=== PATIENT | female | born 1985 | race Caucasian/White ===

== ENCOUNTER 2023-03-19 21:23 | Outpatient (REF) | payer OTHER, SELFPAY ==
[2023-03-23 15:10] LABS: Age Gdln ACOG Testing Note (.); HPV Aptima Negative (Negative); IGP, Aptima HPV, rfx 16/18,45 Note (.)
== END 2023-03-19 21:24 | disposition home or self-care (01) ==
LOC: LAB 21:23
PROVIDERS: PCP Family Medicine; Visit Provider Physician Assistant
DX: Z01.419 Encounter for gynecological examination (general) (routine) without abnormal findings (principal)
CPT/HCPCS: 87624; G0145

== ENCOUNTER 2023-07-11 09:36 | Outpatient (OUT) | payer BC, SELFPAY ==
--- NOTE | 2023-07-11 09:40 | MR_ITS ---
[address] [address] Patient Name: SERJIO LEOS MRN: [id number] date: 1985 Sex: F Assigned Patient Location: MRI Current Patient Location: MRI Accession/Order Number: [id number] Exam Date: 07/11/2023 09:50 Report Date: 07/11/2023 12:58 At the request of: GUILLERMO JEROME Procedure: MR lumbar spine wo con EXAM: MR lumbar spine wo con CLINICAL INDICATION: lumbago with sciatica, left side M54.42 COMPARISON: Lumbar spine radiographs 07/11/2023. TECHNIQUE/PROTOCOL: Noncontrast lumbar spine MR protocol (Sagittal T1, T2, STIR and axial T1, T2 sequences). FINDINGS: Segmentation: Normal. Conus: Terminates at L1. Spinal Cord and Cauda Equina: Normal. Pedicles: Congenital shortened. Alignment: Normal. Marrow Signal: Normal. Vertebral Body Heights: Maintained. Sacroiliac Joints: Grossly normal given only partially visualized. Paraspinal Soft Tissues: Normal. Retroperitoneal Soft Tissues: No acute abnormalities. Spondylotic Changes: Minimal multilevel spondylotic changes include varying degrees of intervertebral disc desiccation, osteophytic ridging, and facet/ligamentum flavum hypertrophy. T12-L1: No disc bulge or herniation. No high-grade spinal canal or foraminal narrowing. L1-L2: No disc bulge or herniation. No high-grade spinal canal or foraminal narrowing. L2-L3: No disc bulge or herniation. No high-grade spinal canal or foraminal narrowing. L3-L4: No disc bulge or herniation. No high-grade spinal canal or foraminal narrowing. L4-L5: Slight left foraminal disc protrusion results in mild left foraminal narrowing. No high-grade spinal canal or right foraminal narrowing. Minimal bilateral facet/ligamentum flavum hypertrophy. L5-S1: Left lateral recess/foraminal disc protrusion with extruded disc material projecting posteriorly and effacing the majority of the left lateral recess. Disc material compresses the transiting left S1 nerve root. There is resultant moderate spinal canal narrowing. Mild bilateral foraminal narrowing. Mild bilateral facet hypertrophy. MR/MR lumbar spine wo con IMPRESSION: 1. Left lateral recess/foraminal disc protrusion at L5-S1 with extruded disc material projecting posteriorly and effacing the majority of the left lateral recess. Disc material compresses the transiting left S1 nerve root. Moderate resultant spinal canal narrowing. 2. No high-grade foraminal narrowing at any lumbar level. Electronically authenticated by: DYLON HOLLINS Date: 07/11/2023 12:58
--- OUTSIDE RECORDS SUMMARY | 2023-07-11 09:42 | XMS_ITS | CCD ---
Author Organization [facility] Care Team Providers Care Remote Sensing Analyst Name Role Phone DR GUILLERMO PATEL Admitting Unavailable DR GUILLERMO PATEL Primary Care Unavailable AMANDA, DR LI Consulting Unavailable DR GUILLERMO PATEL Attending Unavailable MEIR, DR MARIO Admitting Unavailable MEIR, DR MARIO Consulting Unavailable MEIR, DR MARIO Attending Unavailable AMANDA, DR LI Admitting Unavailable AMANDA, DR LI Consulting Unavailable AMANDA, DR LI Attending Unavailable Guillermo Patel Primary Care Physician Martin RAY Attending Unavailable KEISHA GROVES Referring Unavailable KEISHA GROVES Attending Unavailable Allergies Allergy Classification Reported Allergen(s) Allergy Type Date of Onset Reaction(s) Facility (1 source) No Known Medication Allergies; Translations: [No Known Medication Allergies] Propensity to adverse reactions (disorder) [facility] Repository Medications Current Medications Medication Drug Class(es) Dates Sig (Normalized) Sig (Original) citalopram 40 mg oral tablet (1 source) Serotonin Reuptake Inhibitor Start: 05-05-2022 take 1 tablet by mouth once daily CeleXA 40 mg Tab 40 mg = 1 tab(s), Oral, Daily, Refills(s) 0 Start Date: 05/05/22 Status: Ordered hydrOXYzine pamoate 25 mg oral capsule (1 source) Antihistamine Start: 04-11-2013 take 1 capsule by mouth four times daily as needed for anxiety Vistaril 25 mg Cap 25 mg = 1 cap(s), Oral, QID, PRN PRN as needed for anxiety Start Date: 04/11/13 Status: Ordered Problems Active Problems Problem Classification Problem Date Documented Date Episodic/Chronic Acute bronchitis (1 source) Acute bronchitis, unspecified; Translations: [ACUTE BRONCHITIS UNSPECIFIED] Onset: 04-12-2021 Episodic Anxiety disorders (1 source) Anxiety 04-11-2013 Chronic Cancer of uterus (1 source) Malignant neoplasm of uterus 05-05-2022 Chronic Immunizations and screening for infectious disease (1 source) Encounter for screening for human papillomavirus (HPV); Translations: [ENC SCREENING HUMAN PAPILLOMAVIRUS] Onset: 02-12-2021 Episodic Other and unspecified benign neoplasm (1 source) Lipoma of head and neck; Translations: [Benign lipomatous neoplasm of skin and subcutaneous tissue of head, face and neck] Onset: 05-10-2022 Episodic Other and unspecified benign neoplasm (1 source) Lipoma of forehead 05-10-2022 Episodic Other nutritional; endocrine; and metabolic disorders (1 source) Body mass index 40+ - severely obese 05-10-2022 Chronic Other screening for suspected conditions (not mental disorders or infectious disease) (4 sources) Encounter for screening for malignant neoplasm of cervix; Translations: [ENC SCREENING MALIG NEOPLASM CERV] Onset: 02-09-2021 Episodic Residual codes; unclassified (1 source) Insomnia 05-05-2022 Episodic Unclassified (3 sources) CONTACT W/AND (SUSP) EXPOS COVID-19; Translations: [CONTACT W/AND (SUSP) EXPOS COVID-19] Onset: 04-12-2021 Past or Other Problems Problem Classification Problem Date Documented Da te Episodic/Chronic Unclassified (1 source) CONTACT W/AND (SUSP) EXPOS COVID-19; Translations: [CONTACT W/AND (SUSP) EXPOS COVID-19] Onset: 04-05-2021 Results Test Name Value Interpretation Reference Range Facil ity BI MAMMOGRAM SCREENING TOMOS YNTHESIS BILATERALon 06-22-2023 BI MAMMOGRAM SCREENING TOMOSYNTHESIS BILATERAL This is a summary report. The complete report is available in the patient's medical record. If you cannot access the medical record, please contact the sending organization for a detailed fax or copy. EXAMINATION: BI MAMMOGRAM SCREENING TOMOSYNTHESIS BILATERAL CLINICAL HISTORY:[place] cancer screening COMPARISON: There are no previous mammograms available for comparison. RESULT: Digital mammography and 3D tomosynthesis of bilateral breasts was performed. Density: Scattered fibroglandular density [2] There is no suspicious mass, asymmetry, architectural distortion, or calcification. IMPRESSION: BIRADS 1 - Negative Follow-up: Routine Screening Mamm Board Certified Radiologists. Accredited by the ACR and FDA. MAMMOGRAPHY IS VERY IMPORTANT TO YOUR HEALTH. THE [place] GUIDELINES RECOMMEND THAT WOMEN 40 YEARS OF AGE AND OLDER SHOULD HAVE A MAMMOGRAM EVERY YEAR. A REMINDER LETTER WILL BE SENT AT THE APPROPRIATE TIME. THIS FACILITY UTILIZES A REMINDER SYSTEM TO ENSURE ALL PATIENTS RECEIVE REMINDER NOTIFICATIONS AT THE APPROPRIATE TIME BASED ON THE RECOMMENDATIONS OF THIS EXAM. THIS INCLUDES REMINDERS FOR ROUTINE SCREENING MAMMOGRAMS, DIAGNOSTIC MAMMOGRAMS IN WHICH THE PATIENT IS ASKED TO RETURN FOR ADDITIONAL VIEWS, OR OTHER BREAST IMAGING INTERVENTIONS WHEN APPROPRIATE. THE PATIENT WILL BE PLACED IN THE APPROPRIATE REMINDER SYSTEM INCLUDING A REMINDER AT THE APPROPRIATE TIME FOR ANY PENDING ADDITIONAL VIEWS. TRANSCRIBED BY: ELECTRONICALLY SIGNED BY: Alonzo Tello MD Normal Not Available Ambulatory Visit Summaryon 0 05-17-2022 Ambulatory Visit Summary SERJIO LEOS :1985 Visit Date:05/10/2022 Ambulatory Visit Instructions Your Diagnosis Lipoma of forehead Your Care Team Attending Physician - CORY THACKER, Martin Canchola Primary Care Physician - Amanda THACKER, Guillermo This Is Your Medications List Contact prescribing physician if questions or concerns citalopram (CeleXA 40 mg Tab) hydrOXYzine (Vistaril 25 mg Cap) Procedures Performed section, section, Cystectomy, Extraction of wisdom tooth. Medications What How Much When Instructions Unchanged citalopram (CeleXA 40 mg Tab) 1 Tablets By Mouth Every day Contact prescribing physician if questions or concerns Unchanged hydrOXYzine (Vistaril 25 mg Cap) 1 Capsules By Mouth 4 times a day as needed for as needed for anxiety Contact prescribing physician if questions or concerns Medications and Immunizations Administered Not Given influenza virus vaccine, inactivated, Patient Refuses Allergies No Known Allergies No Known Medication Allergies Problems Ongoing - Any problem that you are currently receiving treatment for. Anxiety BMI 40.0-44.9, adult Insomnia Lipoma of forehead Malignant neoplasm of uterus Normal [facility] Facesheeton 05-11-2022 Facesheet [phone] [id number] 0CD:127 Normal [facility] Physician Referralon 023 Physician Referral [phone] [id number] 0CD:127 Normal [facility] Covid-19 PCR (CVDTB)on 03-17 SARS-CoV-2 (COVID-19) RNA TANIKA+probe Ql (Unsp spec) Not detected Normal NOT DETECTED [facility] Comment on above: Result Comment: This test is not yet approved or cleared by the [place] FDA. When there are no FDA-approved or cleared tests available, and other criteria are met, FDA can make tests available under an emergency access mechanism called an Emergency Use Authorization (EUA). The EUA for this test is supported by the [place] of Health and Human Service's (HHS's) declaration that circumstances exist to justify the emergency use of in vitro diagnostics for the detection and/or diagnosis of the virus that causes COVID-19. This EUA will remain in effect (meaning this test can be used) for the duration of the COVID-19 declaration justifying emergency of IVDs, unless it is terminated or revoked by FDA (after which the test may no longer be used). When diagnostic testing is negative, the possibility of a false negative should be considered in the context of a patient's recent exposures and the presence of clinical signs and symptoms consistent with SARS-CoV-2. Performed By: #### C VDTBH #### [facility] [address] [place] [address] Dr. Fany Griggs INFLUENZA A AND B AGon 04-05 [facility] SEE BELOW Normal [facility] Comment on above: Result Comment: Nega tive for Flu A protein angiten. Infection due to Flu A cannot be ruled out. Flu A angiten in the sample may be below the detection limit of the test. Performed By: #### I NFLUAB #### [facility] [address] [place] [address] Dr. Fany Griggs INFLUBNEG SEE BELOW Normal [facility] Comment on above: Result Comment: Nega tive for Flu B protein antigen. Infection due to Flu B cannot be ruled out. Flu B antigen in the sample may be below the detection limit of the test. Performed By: #### I NFLUAB #### [facility] [address] [place] [address] Dr. Fany Griggs INFLUENZA A AG Negative Normal NEGATIVE SEE COMMENT [facility] Comment on above: Performed By: #### I NFLUAB #### [facility] [address] [place] [address] Dr. Fany Griggs INFLUENZA B AG Negative Normal NEGATIVE SEE COMMENT [facility] Comment on above: Performed By: #### I NFLUAB #### [facility] [address] [place] [address] Dr. Fany Griggs INTERNAL CONTROLS Within Normal Limits Normal Wi thin Normal Limits [facility] Comment on above: Performed By: #### I NFLUAB #### [facility] [address] [place] [address] Dr. Fany Griggs PAP ACOG PANEL 2: 30 to 65on 02-14-2021 . . Normal [facility] Comment on above: Result Comment: Perf ormed at: WB Performed By: #### [id number] #### [facility] [address] [place] [address] Dr. Fany Griggs DIAGNOSIS: Comment Normal [facility] Comment on above: Result Comment: NEGA TIVE FOR INTRAEPITHELIAL LESION OR MALIGNANCY. Performed at: WB Performed By: #### 4 [id number] #### [facility] [address] [place] [address] Dr. Fany Griggs HPV Aptima Negative Normal Negative [facility] Comment on above: Result Comment: This nucleic acid amplification test detects fourteen high-risk HPV types (16,18,31,33,35,39,45,51,52,56,58,59,66,68) without differentiation. Performed at: =G Performed By: #### [id number] #### [facility] [address] [place] [address] Dr. Fany Griggs Methodology: Comment Normal [facility] Comment on above: Result Comment: This liquid based ThinPrep(R) pap test was screened with the use of an image guided system. Performed at: WB Performed By: #### 4 [id number] #### [facility] [address] [place] [address] Dr. Fany Griggs Note: Comment Normal [facility] Comment on above: Result Comment: The Pap smear is a screening test designed to aid in the detection of premalignant and malignant conditions of the uterine cervix. It is not a diagnostic procedure and should not be used as the sole means of detecting cervical cancer. Both false-positive and false-negative reports do occur. . Performed at: WB Performed By: #### [id number] #### [facility] [address] [place] [address] Dr. Fany Griggs Performed by: Comment Normal [facility] Comment on above: Result Comment: Silvia Tafoya, Clinical Medical Transcriptionist (ASCP) Performed at: WB Performed By: #### 4 [id number] #### [facility] [address] [address] [address] Fany Griggs Specimen adequacy: Comment Normal [facility] Comment on above: Result Comment: Sati sfactory for evaluation. Endocervical and/or squamous metaplastic cells (endocervical component) are present. Performed at: WB Performed By: #### 4 [id number] #### [facility] [address] [place] [address] Dr. Fany Griggs Age Gdln ACOG Testing 30-65 Normal [facility] Comment on above: Performed By: #### [id number] #### [facility] [address] [place] [address] Dr. Fany Griggs Covid-19 PCR ([place])on 12-16 SARS-CoV-2 (COVID-19) RNA TANIKA+probe Ql (Unsp spec) Not detected Normal NOT DETECTED [facility] Comment on above: Result Comment: This test is not yet approved or cleared by the [place] FDA. When there are no FDA-approved or cleared tests available, and other criteria are met, FDA can make tests available under an emergency access mechanism called an Emergency Use Authorization (EUA). The EUA for this test is supported by the [place] of Health and Human Service's (HHS's) declaration that circumstances exist to justify the emergency use of in vitro diagnostics for the detection and/or diagnosis of the virus that causes COVID-19. This EUA will remain in effect (meaning this test can be used) for the duration of the COVID-19 declaration justifying emergency of IVDs, unless it is terminated or revoked by FDA (after which the test may no longer be used). When diagnostic testing is negative, the possibility of a false negative should be considered in the context of a patient's recent exposures and the presence of clinical signs and symptoms consistent with SARS-CoV-2. Performed By: #### C TB #### [facility] [address] [place] [address] Dr. Fany Griggs Vital Signs Date Time Vital Sign Value Performing Clinician Faci lity 05-10-2022 15:41-0500 Blood Pressure Location Martin CORY [facility] 05-10-2022 15:41-0500 Diastolic blood pressure 88 mm[Hg] Martin NILL [facility] 05-10-2022 15:41-0500 Heart rate 80 /min Martin NILL [facility] 05-10-2022 15:41-0500 Respiratory rate 16 /min Martin NILL [facility] 05-10-2022 15:41-0500 Systolic blood pressure 130 mm[Hg] Martin NILL [facility] Encounters Encounter Date Encounter Type Care Provider Facility Start: 06-22-2023 End: 06-23-2023 ambulatory KEISHA GROVES Not Available Start: 03-19-2023 End: 03-19-2023 ambulatory KEISHA GROVES Not Available Start: 05-10-2022 End: 05-11-2022 ambulatory Martin RAY Facility:[facility] Start: 05-10-2022 End: 05-10-2022 Patient encounter procedure Martin RAY [facility] Start: 04-21-2022 ambulatory Martin RAY Facility:[facility] Start: 04-05-2021 End: 04-05-[address] GUILLERMO PATEL Facility:[facility] Start: 02-09-2021 End: 02-09-[address] FABIANO WORLEY Facility:[facility] Start: 01-05-2021 End: 01-05-[address] GUILLERMO PATEL Facility:[facility] Procedures Date Procedure Procedure Detail Performing Clinician Bladder excision Martin WALTER Sharri Comment on above: mouth section Martin Harrell Extraction of wisdom tooth Martin RAY Immunizations Immunization Date Immunization Notes Care Provider Fa cility 09-09-2020 SARS-CoV-2 (COVID-19 ) mRNA BNT-162b2 vax Martin WALTERL [facility] Comment on above: Result Comment: 2022: TPVAL 08-19-2020 SARS-CoV-2 (COVID-19 ) mRNA BNT-162b2 vax Martin RAY [facility] Comment on above: Result Comment: 2022: TPVAL 04-12-2013 tetanus toxoid, reduced diphtheria toxoid, and acellular pertussis vaccine, adsorbed Martin RAY [facility] Comment on above: Result Comment: give n to left deltoid NEGATED: Highlighted row has not occurred!05-10-2022 influenza virus vaccine, unspecified formulation Martin RAY [facility] Payers Date Payer Category Payer Unknown [id number] 2017 Unknown 1985 Unknown [id number] 2.16.84 [id number] 1985 Unknown [id number] 2.16.84 [id number] 1985 Unknown [id number] 2.16.84 [id number] 1985 Unknown [id number] 2.16.8 [id number] 1985 Unknown [id number] 2.16.8 [id number] 1985 Unknown [id number] 2.16.84 [id number] 1985 Unknown [id number] 1959 Private Health Insurance [id number] Social History Date Type Detail Facility Start: 05-10-2022 Tobacco smoking status Heavy t obacco smoker (finding) [facility] Tobacco smoking status Never [facility] Sex Assigned At Female [facility] Functional Status Date Assessment Result Facility 05-10-2022 Functional Status N/A [facility] [place] Clinical Note 05-10-2022 Note Date & Type Note Facility 05-10-2022 Note Chief Complaint consultation for forehead nodule HPI Staff 36 year old female presents on consultation from Leslie Branham for forehead nodule. Reports small, mobile nodule present approximately one year. Slight increase in size since first noted. Denies discomfort. History of Present Illness 36 yo female referred for left forehead subcutaneous nodule; present for 1 year, slight increase in size, mobile, no skin changes or injury, no pain or drainage. no h/o other lipomas; had dermatofibroma removed from lower extremity 5 years ago; no asa or NSAID use; smokes daily. Review of Systems PHQ Score Initial Depression Screen Score: 0 ROS - Provider Constitutional: no fever, no sweats, no weight loss. Eyes: no glasses, no blurred vision, no visual loss. ENMT: no dentures, no hoarseness, no swallowing difficulties, no hearing loss, no ear infection(s), no nose bleeds. Cardiovascular: normal blood pressure, no chest pain, regular heartbeat, no heart murmur. Respiratory: no shortness of breath, no cough, no asthma, no wheezing. Gastrointestinal: no nausea, no vomiting, no diarrhea, no constipation, no blood in stool, no change in bowel habits, no abdominal pain, no hepatitis. Genitourinary: no kidney stones, no urine infection, no dysuria. Musculoskeletal: no pain, no weakness. Skin: no changing moles, no rash, yes skin lumps. Neurologic: no seizures, no epilepsy, no headache. Psychiatric: no emotional or psychiatric problem. Heme/Lymph: no bleeding problems, no anemia, no blood clots, no transfusions. Allergy/Immunologic: no swollen lymph nodes/glands, no IV drug abuse. Other: Additional ROS info: Except as noted in the above Review of Systems and in the History of Present Illness, all other systems have been reviewed and are negative or noncontributory. Physical Exam Vitals & Measurements HR: 80(Peripheral) RR: 16 BP: 130/88 HT: 68 in HT: 172.72 cm WT: 121.8 kg WT: 267.96 lb BMI: 40.83 HEENT: normal conjunctiva, sclera clear, no scleral icterus, EOM intact, PERRLA, oral mucosa moist without lesions. Neck: trachea midline, no mass, symmetric, no thyromegaly or nodules, no adenopathy Respiratory: lungs CTA, respirations non labored. Cardiovascular: regular rate and rhythm, no murmur, no pedal edema or varicosities. Musculoskeletal: normal gait, digits and nails without infection, nodes, cyanosis, clubbing. Skin: no rashes, no lesions, no ulcers, left forehead with 1.5 cm subcutaneous nodule, mobile, no skin changes, nontender Psychiatric/Neuro: oriented to time, place, person, judgement normal, affect appropriate for age, insight intact, no focal deficits. Tests: labs reviewed, x-rays reviewed, review of old records completed, Discussed surgical options, risks, and possible complications with patient. Assessment/Plan 1. Lipoma of forehead (D17.0: Benign lipomatous neoplasm of skin and subcutaneous tissue of head, face and neck) discussed excision under local at [facility]; patient anxious and feels she would require general anesthesia; patient also concerned about scarring and would like to discuss this with a Plastic surgeon; recommend she be evaluated by Dr Armendariz in [place]; call with problems/questions. Follow-up No qualifying data available Problem List/Past Medical History Ongoing Anxiety BMI 40.0-44.9, adult Insomnia Lipoma of forehead Malignant neoplasm of uterus Historical No qualifying data Procedure/Surgical History section, section, Cystectomy, Extraction of wisdom tooth. Medications CeleXA 40 mg Tab, 40 mg= 1 tab(s), Oral, Daily Vistaril 25 mg Cap, 25 mg= 1 cap(s), Oral, QID, PRN Allergies No Known Allergies No Known Medication Allergies Social History Alcohol - Low Risk, 04/11/2013 Current, 1-2 times per month, 04/11/2013 Substance Abuse - Denies Substance Abuse, 04/11/2013 Tobacco 10 or more cigarettes (1/2 pack or more)/day in last 30 days Tobacco Use:. Never Smokeless Tobacco Use:. Cigarettes, 0.5 per day. Started age 20.0 Years. Yes, 05/10/2022 Family History Hypertension: Mother. Immunizations Vaccine Date Status Comments influenza virus vaccine, inactivated - Not Given Patient Refuses SARS-CoV-2 (COVID-19) mRNA BNT-162b2 vax 09/09/2020 Recorded 2022-05-10: TPVAL SARS-CoV-2 (COVID-19) mRNA BNT-162b2 vax 08/19/2020 Recorded 2022-05-10: TPVAL diphtheria/pertussis, acel/tetanus adult 04/12/2013 Given given to left deltoid [facility] Comment on above: Result Comment: Elec tronically Signed By: CORY THACKER, Martin Ratliff\Date and Time Signed: 05/10/22 16:35 EST Evaluation + Plan note Note Date & Type Note Facility Evaluation + Plan note No data available for this section [facility] Discharge instructions Note Date & Type Note Facility Hospital Discharge instructions No data available for this section [facility] [place] Progress note Note Date & Type Note Facility Progress note No data available for this section [facility] [place] Summary Purpose Family History No Family History Records FoundNo Family History Records FoundNo Family History Records Found Advance Directives No Advanced Directives Records FoundNo Advanced Directives Records FoundNo Advanced Directives Records Found Additional Source Comments INFORMATION SOURCE (unrecogn ized section and content) DATE CREATED AUTHOR [facility]21 [facility] DATE CREATED AUTHOR AUTHOR'S ORGANIZ ATION 05/18/2022 [facility] DATE CREATED AUTHOR AUTHOR'S ORGANIZ ATION 06/27/2023 [facility] EPIC Patient Care team informatio n (unrecognized section and content) Personnel Name: Guillermo Patel MD Address: Address: [address] [place] [address] FOR RECORDS PERTAINING TO PATIENTS WHO ARE OR HAVE BEEN ENROLLED IN A CHEMICAL DEPENDENCY/SUBSTANCEABUSE PROGRAM, SOME INFORMATION MAY BE OMITTED. This clinical summary was aggregated from multiple sources. Caution should be exercised in using it in the provision of clinical care. This summary normalizes information from multiple sources, and as a consequence, information in this document may materially change the coding, format and clinical context of patient data. In addition, data may be omitted in some cases. CLINICAL DECISIONS SHOULD BE BASED ON THE PRIMARY CLINICAL RECORDS. [facility]. provides no warranty or guarantee of the accuracy or completeness of information in this document.
--- NOTE | 2023-07-11 10:06 | XR_ITS ---
The [address] [address] Patient Name: SERJIO LEOS MRN: [id number] date: 1985 Sex: F Assigned Patient Location: MRI Current Patient Location: Accession/Order Number: [id number] Exam Date: 07/11/2023 10:30 Report Date: 07/12/2023 06:18 At the request of: GUILLERMO JEROME Procedure: XR lumbar spine 2-3V EXAMINATION: XR lumbar spine 2-3V HISTORY: lumbago with sciatica M54.42 ; lumbar pain radiating into left leg COMPARISON: No relevant comparison available. FINDINGS: BONES: No significant spondylosis, scoliosis, fracture, or visible bony lesion. DISC SPACES: Mild narrowing L5-S1. PARASPINOUS: Negative. No paraspinous abnormality is seen. OTHER: Negative. XR/XR lumbar spine 2-3V IMPRESSION: 1. L5-S1 mild degenerative disc disease. Otherwise unremarkable lumbar spine. Electronically authenticated by: MANJINDER MAR Date: 07/12/2023 06:18
== END 2023-07-11 09:37 | disposition home or self-care (01) ==
LOC: MRI 09:36
PROVIDERS: PCP Family Medicine; Visit Provider Family Medicine
DX: M54.42 Lumbago with sciatica, left side (principal); M51.27 Other intervertebral disc displacement, lumbosacral region
CPT/HCPCS: 72100; 72148

== ENCOUNTER 2023-07-17 19:53 | Outpatient (OUT) | payer BC, SELFPAY ==
--- OUTSIDE RECORDS SUMMARY | 2023-07-17 19:56 | XMS_ITS | CCD ---
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 Name Role Phone DR GUILLERMO PATEL Admitting Unavailable JUSTUS, DR LI Primary Care Unavailable JUSTUS, DR LI Consulting Unavailable JUSTUS, DR LI Attending Unavailable MEIR, DR MARIO Admitting Unavailable MEIR, DR MARIO Consulting Unavailable MEIR, DR MARIO Attending Unavailable JUSTUS, DR LI Admitting Unavailable JUSTUS, DR LI Consulting Unavailable JUSTUS, DR LI Attending Unavailable Guillermo Patel Primary Care Physician Martin RAY Attending Unavailable KEISHA GROVES Referring Unavailable KEISHA GROVES Attending Unavailable GUILLERMO PATEL Referring Unavailable GUILLERMO PATEL Primary Care Unavailable Allergies Allergy Classification Reported Allergen(s) Allergy Type Date of Onset Reaction(s) Facility (1 source) No Known Medication Allergies; Translations: [No Known Medication Allergies] Propensity to adverse reactions (disorder) [facility] Repository Medications Current Medications Medication Drug Class(es) [...] codes; unclassified (1 source) Insomnia 05-05-2022 Episodic Residual codes; unclassified (1 source) Pain, unspecified; Translations: [Pain, unspecified] Onset: 07-16-2023 Episodic Unclassified (3 sources) CONTACT W/AND (SUSP) [...] IS VERY IMPORTANT TO YOUR HEALTH. THE [place] [employer] GUIDELINES RECOMMEND THAT WOMEN 40 [...] THACKER, Martin Canchola Primary Care Physician - Guillermo Patel MD This Is Your Medications List Contact prescribing [...] of forehead Malignant neoplasm of uterus Normal [facility] Facesheeton 05-11-2022 Facesheet [id number] 0CD:127 Normal [facility] Physician Referralon 023 Physician Referral [id number] 0CD:127 Normal [facility] Covid-19 PCR (CVDTB)on 03-17 SARS-CoV-2 (COVID-19) RNA TANIKA+probe Ql (Unsp spec) Not detected Normal NOT DETECTED [facility] Comment on above: Result Comment: This test is not yet approved or cleared by the [place] FDA. When there are no FDA-approved or cleared tests available, and other criteria are met, FDA can make tests available under an emergency access mechanism called an Emergency Use Authorization (EUA). The EUA for this test is supported by the [place] of Health and Human Service's (HHS's) declaration [...] SARS-CoV-2. Performed By: #### C VDTBH #### [facility] [address] [place] [address] Dr. Fany Griggs INFLUENZA A AND B [facility] 04-05 [facility] SEE BELOW Normal [facility] Comment on above: Result Comment: Nega tive for Flu A protein angiten. Infection due to Flu A cannot be ruled out. Flu A angiten in the sample may be below the detection limit of the test. Performed By: #### I NFLUAB #### [facility] [address] [place] [address] Dr. Fany Griggs INFLUSAN [facility] SEE BELOW Normal [facility] Comment on above: Result Comment: Nega tive for Flu B protein antigen. Infection due to Flu B cannot be ruled out. Flu B antigen in the sample may be below the detection limit of the test. Performed By: #### I NFLUAB #### [facility] [address] [place] [address] Dr. Fany Griggs INFLUENZA A AG Negative Normal NEGATIVE SEE COMMENT [facility] Comment on above: Performed By: #### I NFLUAB #### [facility] [address] [place] [address] Dr. Fany Griggs INFLUENZA B AG Negative Normal NEGATIVE SEE COMMENT [facility] Comment on above: Performed By: #### I NFLUAB #### [facility] [address] [place] [address] Dr. Fany Griggs INTERNAL CONTROLS Within Normal Limits Normal Wi thin Normal Limits [facility] Comment on above: Performed By: #### I NFLUAB #### [facility] [address] [place] [address] Dr. Fany Griggs PAP ACOG PANEL 2: 30 to 65on 02-14-2021 . . Normal [facility] Comment on above: Result Comment: Perf ormed at: WB Performed By: #### [id number] #### [facility] [address] [place] [address] Dr. Fany Griggs DIAGNOSIS: Comment Normal [facility] Comment on above: Result Comment: NEGA TIVE FOR INTRAEPITHELIAL LESION OR MALIGNANCY. Performed at: WB Performed By: #### [id number] #### [facility] [address] [place] [address] Dr. Fayn Griggs HPV Aptima Negative Normal Negative [facility] Comment on above: Result Comment: This nucleic acid amplification test detects fourteen high-risk HPV types (16,18,31,33,35,39,45,51,52,56,58,59,66,68) without differentiation. Performed at: =G Performed By: #### [id number] #### [facility] [address] [place] [address] Dr. Fany Griggs Methodology: Comment Normal [facility] Comment on above: Result Comment: This liquid based ThinPrep(R) pap test was screened with the use of an image guided system. Performed at: WB Performed By: #### [id number] #### [facility] [address] [place] [address] Dr. Fany Griggs Note: Comment Normal [facility] Comment on above: Result Comment: The Pap smear is a screening test designed to aid in the detection of premalignant and malignant conditions of the uterine cervix. It is not a diagnostic procedure and should not be used as the sole means of detecting cervical cancer. Both false-positive and false-negative reports do occur. . Performed at: WB Performed By: #### [id number] #### [facility] [address] [place] [address] Dr. Fany Griggs Performed by: Comment Normal [facility] Comment on above: Result Comment: Silvia Tafoya, Head Of Strategy (ASCP) Performed at: WB Performed By: #### [id number] #### [facility] [address] [place] [address] Dr. Fany Griggs Specimen adequacy: Comment Normal [facility] Comment on above: Result Comment: Sati sfactory for evaluation. Endocervical and/or squamous metaplastic cells (endocervical component) are present. Performed at: WB Performed By: #### 4 [id number] #### [facility] [address] [place] [address] Dr. Fany Griggs Age Gdln ACOG Testing 30-65 [facility] Comment on above: Performed By: #### 4 [id number] #### [facility] [address] [place] [address] Dr. Fany Griggs [facility] SARS-CoV-2 (COVID-19) RNA TANIKA+probe Ql (Unsp spec) Not detected Normal NOT DETECTED [facility] Comment on above: Result Comment: This test is not yet approved or cleared by the [place] FDA. When there are no FDA-approved or cleared tests available, and other criteria are met, FDA can make tests available under an emergency access mechanism called an Emergency Use Authorization (EUA). The EUA for this test is supported by the [place] of Health and Human Service's (HHS's) declaration [...] consistent with SARS-CoV-2. Performed By: #### C [facility] #### [facility] [address] [place] [address] Dr. Fany Griggs Vital Signs Date Time Vital Sign Value Performing Clinician Faci lity 05-10-2022 15:41-0500 Blood Pressure Location Martin NILL [facility] 05-10-2022 15:41-0500 Diastolic blood pressure 88 mm[Hg] Martin NILL [facility] 05-10-2022 15:41-0500 Heart rate 80 /min Martin NILL [facility] 05-10-2022 15:41-0500 Respiratory rate 16 /min Martin NILL [facility] 05-10-2022 15:41-0500 Systolic blood pressure 130 mm[Hg] Martin NILL [facility] Encounters Encounter Date Encounter Type Care Provider Facility Start: 07-16-2023 ambulatory [facility] Start: 06-22-2023 End: 06-23-2023 ambulatory KEISHA GROVES Not Available Start: 03-19-2023 End: 03-19-2023 ambulatory KEISHA GROVES Not Available Start: 05-10-2022 End: 05-11-2022 ambulatory Martin RAY Facility: [facility] Start: 05-10-2022 End: 05-10-2022 Patient encounter [facility] Start: 04-21-2022 ambulatory Martin RAY Facility:[facility] [place] Start: 04-05-2021 End: 04-05-[address] GUILLERMO PATEL Facility:[facility] Start: 02-09-2021 End: 02-09-[address] FABIANO WORLEY Facility:[facility] Start: 01-05-2021 End: 01-05-[address] GUILLERMO PATEL Facility:[facility] Procedures Date Procedure Procedure Detail Performing Clinician Bladder excision Martin Harrell Comment on above: mouth section Martin NIL L Extraction of wisdom tooth Martin CORY Immunizations Immunization Date Immunization Notes Care Provider Fa cility 09-09-2020 SARS-CoV-2 (COVID-19 ) mRNA BNT-162b2 vax Martin WALTERL [facility] Comment on above: Result Comment: 2022: TPVAL 08-19-2020 SARS-CoV-2 (COVID-19 ) mRNA BNT-162b2 vax Martin WALTERL [facility] Comment on above: Result Comment: 2022: TPVAL 04-12-2013 tetanus toxoid, reduced diphtheria toxoid, and acellular pertussis vaccine, adsorbed Martin [facility]TERShar[facility] Comment on above: Result Comment: give n to left deltoid NEGATED: Highlighted row has not occurred!05-10-2022 influenza virus vaccine, unspecified formulation Martin CORY [facility] Payers Date Payer Category Payer Unknown [id number] 2017 Unknown 2015 Unknown [id number] 1985 Unknown [id number] .16.84 [id number] 1985 Unknown [id number] .16.84 [id number] 1985 Unknown [id number] .16.84 [id number] 1985 Unknown [id number] 2.16.8 [id number] 1985 Unknown [id number] 2.16.8 [id number] 1985 Unknown [id number] 2.16.84 [id number] 1985 Unknown [id number] 2.16.840 .[id number] 1985 Unknown [id number] 2.16.8 [id number] 1985 Unknown [id number] 2.16.8 [id number] 1959 Private Health Insurance [id number] Social History Date Type Detail Facility Start: 05-10-2022 Tobacco smoking status Heavy t obacco smoker (finding) [facility] [place] Tobacco smoking status Never [facility] [place] Sex Assigned At Female [facility] Functional Status Date Assessment Result Facility 05-10-2022 [facility] Note Date & Type [...] and neck) discussed excision under local at [facility]; patient anxious and feels she would require general anesthesia; patient also concerned about scarring and would like to discuss this with a Plastic surgeon; recommend she be evaluated by Dr Armendariz in [place]; call with problems/questions. Follow-up No qualifying data [...] adult 04/12/2013 Given given to left deltoid [facility] Comment on above: Result Comment: Elec tronically Signed By: CORY THACKER, Martin Ratliff\Date and Time Signed: 05/10/22 16:35 EST Evaluation + Plan note Note Date & Type Note Facility Evaluation + Plan note No data available for this section [facility] [place] [facility] Discharge instructions Note Date & Type Note Facility Hospital Discharge instructions No data available for this section [facility] [place] Progress note Note Date & Type Note Facility Progress note No data available for this section [facility] [place] Summary Purpose Family History No Family History Records FoundNo Family History Records FoundNo Family History Records FoundNo Family History Records Found Advance Directives No Advanced Directives Records FoundNo Advanced Directives Records FoundNo Advanced Directives Records FoundNo Advanced Directives Records Found Additional Source Comments INFORMATION SOURCE (unrecogn ized section and content) DATE CREATED AUTHOR 04/13/2021 [facility] DATE CREATED AUTHOR AUTHOR'S ORGANIZ ATION 05/18/[address] [facility] DATE CREATED AUTHOR AUTHOR'S ORGANIZ ATION 06/27/2023 [facility] EPIC DATE CREATED AUTHOR AUTHOR'S ORGANIZ ATION 07/16/2023 [facility] Patient Care team informatio n (unrecognized section and content) Personnel Name: Guillermo Patel MD Address: Address: [address] [place] [address] FOR RECORDS PERTAINING TO PATIENTS WHO ARE [...] BE BASED ON THE PRIMARY CLINICAL RECORDS. [facility] [employer] provides no warranty or guarantee of the accuracy or completeness of information in this document.
== END 2023-07-17 19:54 | disposition home or self-care (01) ==
LOC: SLEEP 19:53
PROVIDERS: PCP Family Medicine; Visit Provider Family Medicine
DX: G47.33 Obstructive sleep apnea (adult) (pediatric) (principal)
CPT/HCPCS: 95810

== ENCOUNTER 2023-07-31 20:03 | Outpatient (OUT) | payer BC, SELFPAY ==
--- OUTSIDE RECORDS SUMMARY | 2023-07-31 20:06 | XMS_ITS | CCD ---
Author Organization [facility] Care Team Providers Care Radio Host Name Role Phone DR GUILLERMO PATEL Admitting Unavailable AMANDA, DR LI Primary Care Unavailable AMANDA, DR LI Consulting Unavailable AMANDA, DR LI Attending Unavailable MEIR, DR MARIO Admitting Unavailable MEIR, DR MARIO Consulting Unavailable MEIR, DR MARIO Attending Unavailable AMANDA, DR LI Admitting Unavailable AMANDA, DR LI Consulting Unavailable AMANDA, DR LI Attending Unavailable Guillermo Patel Primary Care Physician Martin RAY Attending Unavailable KEISHA GROVES Referring Unavailable KEISHA GROVES Attending Unavailable GUILLERMO PATEL Referring Unavailable GUILLERMO PATEL Primary Care Unavailable ABILIO MELO Attending Unavailable GUILLERMO PATEL Referring Unavailable GUILLERMO PATEL Primary Care Unavailable Allergies Allergy Classification Reported Allergen(s) Allergy Type Date of Onset Reaction(s) Facility (1 source) No Known Medication Allergies; Translations: [No Known Medication Allergies] Propensity to adverse reactions (disorder) [facility] Medications Current Medications Medication Drug Class(es) [...] unspecified; Translations: [Pain, unspecified] Onset: 07-16-2023 Episodic Spondylosis; intervertebral disc disorders; other back problems (2 sources) Spinal stenosis, lumbar region with neurogenic claudication; Translations: [Backache] Onset: 07-26-2023 Episodic Unclassified (3 sources) CONTACT W/AND (SUSP) [...] IS VERY IMPORTANT TO YOUR HEALTH. THE [employer] GUIDELINES RECOMMEND THAT WOMEN 40 [...] of forehead Malignant neoplasm of uterus Normal [facility] Facesheeton 05-11-2022 Facesheet [id number] 10 [id number] 0CD:127 Normal [facility] Physician Referralon 023 Physician Referral [id number] 0CD:127 Normal [facility] Covid-19 PCR ([facility])on 03-17 SARS-CoV-2 (COVID-19) RNA TANIKA+probe Ql (Unsp spec) Not detected Normal NOT DETECTED [facility] Comment on above: Result Comment: This test is not yet approved or cleared by the [place] FDA. When there are no FDA-approved or cleared tests available, and other criteria are met, FDA can make tests available under an emergency access mechanism called an Emergency Use Authorization (EUA). The EUA for this test is supported by the [employer] of Health and Human Service's (HHS's) declaration [...] SARS-CoV-2. Performed By: #### C VDTBH #### [facility] [address] [place] [address] Dr. Fany Griggs INFLUENZA A AND B [facility] 04-05 [facility] SEE BELOW Normal [facility] Comment on above: Result Comment: Nega tive for Flu A protein angiten. Infection due to Flu A cannot be ruled out. Flu A angiten in the sample may be below the detection limit of the test. Performed By: #### I NFLUAB #### [facility] [address] [place] [address] Dr. Fany Griggs [facility] SEE BELOW Normal [facility] Comment on above: Result Comment: Nega tive for Flu B protein antigen. Infection due to Flu B cannot be ruled out. Flu B antigen in the sample may be below the detection limit of the test. Performed By: #### I NFLUAB #### [facility] [address] [place] [address] Dr. Fany Griggs INFLUENZA A AG Negative Normal NEGATIVE SEE COMMENT [facility] Comment on above: Performed By: #### I NFLUAB #### [facility] [address] [place] [address] Dr. Fany Griggs INFLUENZA B AG Negative Normal NEGATIVE SEE COMMENT [facility] Comment on above: Performed By: #### I NFLUAB #### [facility] [address] [place] [address] Dr. Fany Griggs INTERNAL CONTROLS Within Normal Limits Normal Wi thin Normal Limits [facility] Comment on above: Performed By: #### I NFLUAB #### [facility] [address] [place] [address] Dr. Fany Griggs PAP ACOG PANEL 2: 30 to 65on 02-14-2021 . . Normal [facility] Comment on above: Result Comment: Perf ormed at: WB Performed By: #### [id number] #### [facility] [address] [place] [address] Dr. Fany Griggs DIAGNOSIS: Comment Normal [facility] Comment on above: Result Comment: NEGA TIVE FOR INTRAEPITHELIAL LESION OR MALIGNANCY. Performed at: WB Performed By: #### [id number] #### [facility] [address] [place] [address] Dr. Fany Griggs HPV Aptima Negative Normal Negative [facility] Comment on above: Result Comment: This nucleic acid amplification test detects fourteen high-risk HPV types (16,18,31,33,35,39,45,51,52,56,58,59,66,68) without differentiation. Performed at: =G Performed By: #### [id number] #### [facility] [address] [place] [address] Dr. Fany Griggs Methodology: Comment Normal [facility] Comment on above: Result Comment: This liquid based ThinPrep(R) pap test was screened with the use of an image guided system. Performed at: WB Performed By: #### [id number] #### [facility] [address] [place] [address] Dr. Fany Griggs Note: Comment Normal [facility] Comment on above: Result Comment: The Pap smear is a screening test designed to aid in the detection of premalignant and malignant conditions of the uterine cervix. It is not a diagnostic procedure and should not be used as the sole means of detecting cervical cancer. Both false-positive and false-negative reports do occur. . Performed at: WB Performed By: #### [id number] #### [facility] [address] [place] [address] Dr. Fany Griggs Performed by: Comment Normal [facility] Comment on above: Result Comment: Silvia Tafoya, Nurse Private Duty (ASCP) Performed at: WB Performed By: #### [id number] #### [facility] [address] [place] [address] Dr. Fany Griggs Specimen adequacy: Comment Normal [facility] Comment on above: Result Comment: Sati sfactory for evaluation. Endocervical and/or squamous metaplastic cells (endocervical component) are present. Performed at: WB Performed By: #### 4 [id number] #### [facility] [address] [place] [address] Dr. Fany Griggs Age Gdln ACOG Testing 30-65 Normal [facility] Comment on above: Performed By: #### 4 [id number] #### [facility] [address] [place] [address] Dr. Fany Griggs [facility] SARS-CoV-2 (COVID-19) RNA TANIKA+probe Ql (Unsp spec) Not detected Normal NOT DETECTED [facility] Comment on above: Result Comment: This test is not yet approved or cleared by the [place] FDA. When there are no FDA-approved or cleared tests available, and other criteria are met, FDA can make tests available under an emergency access mechanism called an Emergency Use Authorization (EUA). The EUA for this test is supported by the [place] of Health and Human Service's (HHS's) declaration [...] consistent with SARS-CoV-2. Performed By: #### C [facility] #### [facility] [address] [place] [address] Dr. Fany Griggs Vital Signs Date Time Vital Sign Value Performing Clinician Ummi tish 05-10-2022 15:41-0500 Blood Pressure Location [facility] 05-10-2022 15:41-0500 Diastolic blood pressure 88 mm[Hg] [facility] 05-10-2022 15:41-0500 Heart rate 80 /min [facility] 05-10-2022 15:41-0500 Respiratory rate 16 /min [facility] 05-10-2022 15:41-0500 Systolic blood pressure 130 mm[Hg] [facility] Encounters Encounter Date Encounter Type Care Provider Facility Start: 07-26-2023 End: 07-26-2023 ambulatory ABILIO MELO [facility] Start: 07-16-2023 ambulatory GUILLERMO Porter [facility] Start: 06-22-2023 End: 06-23-2023 ambulatory KEISHA GROVES Not Available Start: 03-19-2023 End: 03-19-2023 ambulatory KEISHA GROVES Not Available Start: 05-10-2022 End: 05-11-2022 ambulatory Martin RAY Facility:[facility] Start: 05-10-2022 End: 05-10-2022 Patient encounter procedure Martin RAY [facility] Start: 04-21-2022 ambulatory Martin RAY Facility:[facility] Start: 04-05-2021 End: 04-05-[address] GUILLERMO PATEL Facility:[facility] Start: 02-09-2021 End: 02-09-[address] FABIANO WORLEY Facility:[facility] Start: 01-05-2021 End: 01-05-[address] GUILLERMO PATEL Facility:[facility] Procedures Date Procedure Procedure Detail Performing Clinician Bladder excision Martin Harrell Comment on above: mouth section Martin Harrell Extraction of wisdom tooth Martin RAY Immunizations Immunization Date Immunization Notes Care Provider Fa [facility] 09-09-2020 SARS-CoV-2 (COVID-19 ) mRNA BNT-162b2 vax Martin WALTERSharri [facility] Comment on above: Result Comment: 2022: [facility] 08-19-2020 SARS-CoV-2 (COVID-19 ) mRNA BNT-162b2 vax Martin RAY [facility] Comment on above: Result Comment: 2022: TPVAL 04-12-2013 tetanus toxoid, reduced diphtheria toxoid, and acellular pertussis vaccine, adsorbed Martin CORY [facility] Comment on above: Result Comment: give n to left deltoid NEGATED: Highlighted row has not occurred!05-10-2022 influenza virus vaccine, unspecified formulation Martin WALTERSharri [facility] Payers Date Payer Category Payer Unknown [id number] 2017 Unknown 1985 Unknown [id number] 2.16.84 [id number] 1985 Unknown [id number] 2.16.84 [id number] 1985 Unknown [id number] 2.16.84 [id number] 1985 Unknown [id number] 2.16.8 [id number] 1985 Unknown [id number] 2.16.8 [id number] 1985 Unknown [id number] 2.16.84 [id number] 1985 Unknown [id number] 2.16.840 .[id number] 1985 Unknown [id number] 2.16.8 [id number] 1985 Unknown [id number] 2.16.8 [id number] 1985 Unknown [id number] 2.16.8 [id number] 1959 Private Health Insurance [id number] Social History Date Type Detail Facility Start: 05-10-2022 Tobacco smoking status Heavy t obacco smoker (finding) [facility] Tobacco smoking status Never [facility] Sex Assigned At Female [facility] Functional Status Date Assessment Result Facility 05-10-2022 Functional Status N/A General Story [facility] Clinical Note 05-10-2022 Note Date & [...] and neck) discussed excision under local at [facility]; patient anxious and feels she would require general anesthesia; patient also concerned about scarring and would like to discuss this with a Plastic surgeon; recommend she be evaluated by Dr Armendariz in [place]; call with problems/questions. Follow-up No qualifying data [...] adult 04/12/2013 Given given to left deltoid [facility] Comment on above: Result Comment: Elec tronically Signed By: CORY THACKER, Martin Ratliff\Date and Time Signed: 05/10/22 16:35 EST Evaluation + Plan note Note Date & Type Note Facility Evaluation + Plan note No data available for this section [facility] Discharge instructions Note Date & Type Note Facility Hospital Discharge instructions No data available for this section [facility] Progress note Note Date & Type Note Facility Progress note No data available for this section [facility] Summary Purpose Family History No Family History [...] content) DATE CREATED AUTHOR 04/13/2021 [facility] DATE CREATED AUTHOR AUTHOR'S ORGANIZ ATION 05/18/2022 [facility] DATE CREATED AUTHOR AUTHOR'S ORGANIZ ATION 06/27/2023 [facility] EPIC DATE CREATED AUTHOR AUTHOR'S ORGANIZ ATION 07/17/2023 [facility] DATE CREATED AUTHOR AUTHOR'S ORGANIZ ATION 07/27/2023 [facility] Patient Care team informatio n (unrecognized section and content) Personnel Name: Guillermo Patel MD Address: Address: [address] [place] [address] FOR RECORDS PERTAINING TO PATIENTS WHO ARE [...] BE BASED ON THE PRIMARY CLINICAL RECORDS. [employer] [facility]. provides no warranty or guarantee of the accuracy or completeness of information in this document.
== END 2023-07-31 20:04 | disposition home or self-care (01) ==
LOC: SLEEP 20:03
PROVIDERS: PCP Family Medicine; Visit Provider Family Medicine
DX: G47.33 Obstructive sleep apnea (adult) (pediatric) (principal)
CPT/HCPCS: 95811

== ENCOUNTER 2024-03-04 10:31 | Outpatient (OUT) | payer BC, SELFPAY ==
--- NOTE | 2024-03-04 10:34 | US_ITS ---
[address] [address] Patient Name: SERJIO LEOS MRN: [id number] date: 1985 Sex: F Assigned Patient Location: [facility] Current Patient Location: [facility] Accession/Order Number: [id number] Exam Date: 03/04/2024 10:34 Report Date: 03/04/2024 11:42 At the request of: FABIANO WORLEY Procedure: US pelvis w/ transvaginal EXAMINATION: US pelvis w/ transvaginal HISTORY: CERVICAL MASS COMPARISON: No relevant comparison available. TECHNIQUE: Transabdominal and/or transvaginal sonographic examination was performed as indicated by examination type. FINDINGS: UTERUS: Several nabothian cysts within [place] of cervix, largest is 7 mm. Unremarkable uterine body. Uterus size: 8.0 x 3.3 x 5.4 cm ENDOMETRIUM: Normal homogeneous appearance. Endometrial thickness: 5 mm RIGHT OVARY: Normal size and appearance. Duplex Doppler demonstrates normal waveform and flow; resistive index 0.6. Ovary size: 3.4 x 2.1 x 2.1 cm LEFT OVARY: Normal size and appearance. Duplex Doppler demonstrates normal waveform and flow; resistive index 0.7. Ovary size: 2.3 x 1.3 x 2.1 cm CUL-DE-SAC: Unremarkable. No significant free fluid. BLADDER: Unremarkable. OTHER: None. US/US pelvis w/ transvaginal IMPRESSION: 1. Several nabothian cysts within the cervix, largest is 7 mm. No prior studies for comparison. Electronically authenticated by: MANJINDER MAR Date: 03/04/2024 11:42
--- OUTSIDE RECORDS SUMMARY | 2024-03-04 10:50 | XMS_ITS | CCD ---
Author Organization [facility] Care Team Providers Care Communications Tech Name Role Phone DR GUILLERMO PATEL Admitting Unavailable JUSTUS, DR LI Primary Care Unavailable JUSTUS, DR LI Consulting Unavailable JUSTUS, DR LI Attending Unavailable MEIR, DR MARIO Admitting Unavailable MEIR, DR MARIO Consulting Unavailable MEIR, DR MARIO Attending Unavailable JUSTUS, DR LI Admitting Unavailable JUSTUS, DR LI Consulting Unavailable JUSTUS, DR LI Attending Unavailable Edson Patellas Primary Care Physician Martin RAY Attending Unavailable HOY, GUILLERMO M Referring Unavailable HOY, GUILLERMO M Primary Care Unavailable HOY, GUILLERMO M Referring Unavailable HOY, GUILLERMO M Primary Care Unavailable YAMILA FLORES Attending Unavailable ABILIO MELO Attending Unavailable HOY, GUILLERMO M Referring Unavailable HOY, GUILLERMO M Primary Care Unavailable HOY, GUILLERMO M Primary Care Unavailable SOFIA CASTRO Referring Unavailable DAVID CURRY Attending Unavailable DAVID CURRY Referring Unavailable HOY, GUILLERMO M Primary Care Unavailable DAVID CURRY Admitting Unavailable DAVID CURRY Attending Unavailable HOY, GUILLERMO M Referring Unavailable HOY, GUILLERMO M Primary Care Unavailable HUYEN COYLE Attending Unavailable HOY, GUILLERMO M Primary Care Unavailable SOFIA CASTRO Referring Unavailable HOY, GUILLERMO M Primary Care Unavailable ABILIO MELO Attending Unavailable HOY, GUILLERMO M Referring Unavailable HOY, GUILLERMO M Primary Care Unavailable SOFIA CASTRO Referring Unavailable HOY, GUILLERMO M Primary Care Unavailable ABILIO MELO Attending Unavailable HOY, GUILLERMO M Referring Unavailable HOY, GUILLERMO M Primary Care Unavailable HOY, GUILLERMO M Primary Care Unavailable HOY, GUILLERMO M Primary Care Unavailable TEOFILO SAMANO Attending Unavailable SUMANTH ENCARNACION Attending Unavailable SUMANTH ENCARNACION Referring Unavailable HOY, GUILLERMO M Primary Care Unavailable SUMANTH ENCARNACION Attending Unavailable SUMANTH ENCARNACION Referring Unavailable GUILLERMO PATEL Primary Care Unavailable KEISHA GROVES Referring Unavailable KEISHA GROVES Attending Unavailable FABIANO WORLEY Attending Unavailable Allergies Allergy Classification Reported Allergen(s) Allergy Type Date of Onset Reaction(s) Facility (1 source) No Known Medication Allergies; Translations: [No Known Medication Allergies] Propensity to adverse reactions (disorder) [facility] Repository Medications Current Medications Medication Drug Class(es) [...] Problem Classification Problem Date Documented Date Episodic/Chronic Abdominal pain (3 sources) Pelvic and perineal pain; Translations: [Abdominal pain] Onset: 11-25-2023 Episodic Acute bronchitis (1 source) Acute bronchitis, unspecified; [...] conditions (not mental disorders or infectious disease) (1 source) Abnormal findings on diagnostic imaging of other specified body structures; Translations: [Abnormal findings on diagnostic imaging of other specified body structures] Onset: 11-29-2023 Chronic Other screening for suspected conditions (not mental disorders or infectious disease) (4 sources) Encounter for screening for malignant neoplasm of cervix; Translations: [ENC SCREENING MALIG NEOPLASM CERV] Onset: 02-09-2021 Episodic Other upper respiratory infections (1 source) Acute pharyngitis, unspecified; Translations: [Acute pharyngitis, unspecified] Onset: 11-25-2023 Episodic Residual codes; unclassified (1 source) Insomnia 05-05-2022 Episodic Residual codes; unclassified (1 source) Pain, unspecified; Translations: [Pain, unspecified] Onset: 07-16-2023 Episodic Spondylosis; intervertebral disc disorders; other back problems (3 sources) Other intervertebral disc displacement, lumbar region; Translations: [Spondylosis without myelopathy or radiculopathy, lumbosacral region] Onset: 08-02-2023 Chronic Unclassified (3 sources) CONTACT W/AND (SUSP) EXPOS COVID-19; Translations: [CONTACT W/AND (SUSP) EXPOS COVID-19] Onset: 04-12-2021 Unclassified (1 source) Consult Onset: 08-02-2023 Unclassified (1 source) Cold Like Symptoms Onset: 11-25-2023 Unclassified (1 source) Spinal stenosis of lumbar region with neurogenic claudication [M48.062] Onset: 08-03-2023 Past or Other Problems Problem Classification Problem Date Documented Da te Episodic/Chronic Spondylosis; intervertebral disc disorders; other back problems (2 sources) Spinal stenosis, lumbar region with neurogenic claudication; Translations: [Backache] Onset: 07-26-2023 Episodic Unclassified (1 source) CONTACT W/AND (SUSP) EXPOS COVID-19; Translations: [CONTACT W/AND (SUSP) EXPOS COVID-19] Onset: 04-05-2021 Results Test Name Value Interpretation Reference Range Facility CBC AND AUTO DIFFon 11-29-19 ABSOLUTE BASOPHIL 0.0 X10E9/L Normal 0.0-0.2 [facility] Comment on above: Performed By: #### C BCA, CMP, 3040-3, , 83582-4 #### [facility] ([id number]) [address] [place] [address] 64046 ABSOLUTE NEUTROPHIL 12.5 X10E9/L High 1.5-6.6 [facility] Comment on above: Performed By: #### Jamie LYONS, CMP, 3040-3, , 10959-8 #### [facility] ([id number]) [address] [place] [address] 75037 Basophils/100 WBC (Bld) 0.2 % Normal [facility] Comment on above: Performed By: #### Jamie LYONS, CMP, 0-3, , 81078-8 #### [facility] ([id number]) [address] [place] [address] 55323 Eosinophils (Bld) [#/Vol] 0.0 10*3/uL Normal 0.0-0.4 [facility] Comment on above: Performed By: #### Jamie LYONS, CMP, 0-3, , 46056-5 #### [facility] ([id number]) [address] [place] [address] 82847 Eosinophils/100 WBC (Bld) 0.0 % Normal [facility] Comment on above: Performed By: #### Jamie LYONS, CMP, 0-3, , 34034-2 #### [facility] ([id number]) [address] [place] [address] 87182 Erythrocyte distribution width (RBC) [Ratio] 13.8 % Normal 11.5-15.0 [facility] Comment on above: Performed By: #### Jamie LYONS, CMP, 3040-3, , 51758-9 #### [facility] ([id number]) [address] [place] [address] 12517 Hematocrit (Bld) [Volume fraction] 43.7 % Normal 35-47 [facility] Comment on above: Performed By: #### C BCA, CMP, 3040-3, , 54499-7 #### [facility] ([id number]) [address] [place] [address] 82625 Hemoglobin (Bld) [Mass/Vol] 14.4 g/dL Normal 11.7-15.5 [facility] Comment on above: Performed By: #### C BCA, CMP, 3040-3, , 12707-9 #### [facility] ([id number]) [address] [place] [address] 81628 Lymphocytes (Bld) [#/Vol] 2.1 10*3/uL Normal 1.0-3.5 [facility] Comment on above: Performed By: #### Jamie BCA, CMP, 0-3, , 27409-0 #### [facility] ([id number]) [address] [place] [address] 12363 Lymphocytes/100 WBC (Bld) 13.6 % Normal [facility] Comment on above: Performed By: #### Jamie BCA, CMP, 3040-3, , 34808-1 #### [facility] ([id number]) [address] [place] [address] 61740 MCH (RBC) [Entitic mass] 28.5 pg Normal 27-34 [facility] Comment on above: Performed By: #### C BCA, CMP, 3040-3, , 13920-1 #### [facility] ([id number]) [address] [place] [address] 95470 MCHC (RBC) [Mass/Vol] 33.0 g/dL Normal 32-36 [facility] Comment on above: Performed By: #### Jmaie BCA, CMP, 3040-3, , 51302-4 #### [facility] ([id number]) [address] [place] [address] 17032 MCV (RBC) [Entitic vol] 86 fL Normal 80-100 [facility] Comment on above: Performed By: #### C ELOY, CMP, 3040-3, , 21021-0 #### [facility] ([id number]) [address] [place] [address] 06043 Monocytes (Bld) [#/Vol] 0.6 10*3/uL Normal 0-0.9 [facility] Comment on above: Performed By: #### C ELOY, CMP, 3040-3, , 29132-8 #### [facility] ([id number]) [address] [place] [address] 05700 Monocytes/100 WBC (Bld) 3.9 % Normal [facility] Comment on above: Performed By: #### Jamie BCA, CMP, 3040-3, , 45123-2 #### [facility] ([id number]) [address] [place] [address] 62037 Neutrophils/100 WBC (Bld) 82.3 % Normal [facility] Comment on above: Performed By: #### Jamie LYONS, CMP, 3040-3, , 30571-5 #### [facility] ([id number]) [address] [place] [address] 22177 Platelet mean volume (Bld) [Entitic vol] 9.6 fL Normal 7-12 [facility] Comment on above: Performed By: #### Jamie BCA, CMP, 3040-3, , 58579-2 #### [facility] ([id number]) [address] [place] [address] 14443 Platelets (Bld) [#/Vol] 273 10*3/uL Normal 150-450 [facility] Comment on above: Performed By: #### Jamie BCA, CMP, 3040-3, 75298-3, 54362-1 #### [facility] ([id number]) [address] [place] [address] 52598 RBC COUNT 5.06 X10E12/L Normal 3.80-5.20 [facility] Comment on above: Performed By: #### C BCA, CMP, 3040-3, 96519-3, 24641-1 #### [facility] ([id number]) [address] [place] [address] 93562 WBC (Bld) [#/Vol] 15.2 10*3/uL High 4.0-11.0 [facility] Comment on above: Performed By: #### C BCA, CMP, 3040-3, 97228-9, 46213-4 #### [facility] ([id number]) [address] [place] [address] 16040 COMPREHENSIVE METABOLIC PANE Ruddy 11-29-2023 Albumin [Mass/Vol] 4.2 g/dL Normal 3.2-5.3 [facility] Comment on above: Performed By: #### C BCA, CMP, 3040-3, 22370-4, 88225-0 #### [facility] ([id number]) [address] [place] [address] 16129 ALP [Catalytic activity/Vol] 71 U/L Normal 39-130 [facility] Comment on above: Performed By: #### C BCA, CMP, 3040-3, 32723-5, 89990-6 #### [facility] ([id number]) [address] [place] [address] 68582 ALT [Catalytic activity/Vol] 32 U/L High 0-31 [facility] Comment on above: Performed By: #### C BCA, CMP, 3040-3, 93557-8, 32823-8 #### [facility] ([id number]) [address] [place] [address] 20025 Anion gap [Moles/Vol] 10 mmol/L Normal 5-15 [facility] Comment on above: Performed By: #### C BCA, CMP, 3040-3, 85429-4, 14374-9 #### [facility] ([id number]) [address] [place] [address] 26291 AST [Catalytic activity/Vol] 25 U/L Normal 0-41 [facility] Comment on above: Performed By: #### C BCA, CMP, 3040-3, 05633-6, 39733-4 #### [facility] ([id number]) [address] [place] [address] 67789 Bilirubin [Mass/Vol] 0.8 mg/dL Normal 0.3-1.2 [facility] Comment on above: Performed By: #### C BCA, CMP, 3040-3, , 38993-4 #### [facility] ([id number]) [address] [place] [address] 42049 Calcium [Mass/Vol] 8.5 mg/dL Normal 8.5-10.5 [facility] Comment on above: Performed By: #### C BCA, CMP, 3040-3, , 88203-4 #### [facility] ([id number]) [address] [place] [address] 63187 Chloride [Moles/Vol] 100 mmol/L Normal 98-109 [facility] Comment on above: Performed By: #### C BCA, CMP, 3040-3, 56211-6, 34604-1 #### [facility] ([id number]) [address] [place] [address] 57655 CO2 [Moles/Vol] 23 mmol/L Normal 22-32 [facility] Comment on above: Performed By: #### C BCA, CMP, 3040-3, 42683-9, 02863-8 #### [facility] ([id number]) [address] [place] [address] 79563 Creatinine [Mass/Vol] 1.14 mg/dL High 0.40-1.00 [facility] Comment on above: Result Comment: METH OD TRACEABLE TO IDMS STANDARD Performed By: #### C GABY LYONS, 3040-3, 25622-7, 53093-7 #### [facility] ([id number]) [address] [place] [address] 96810 GFR/1.73 sq M.predicted among non-blacks MDRD (S/P/Bld) [Vol rate/Area] 64 mL/min/{1.73_m2} Normal >59 [facility] Comment on above: Result Comment: Reported eGFR is based on the CKD-EPI 2020 equation that does not use a race coefficient. Performed By: #### C ELOY CMP, 3040-3, 07299-1, 59009-4 #### [facility] ([id number]) [address] [place] [address] 30920 Glucose [Mass/Vol] 106 mg/dL High 65-99 [facility] Comment on above: Performed By: #### C ELOY CMP, 3040-3, , 25619-4 #### [facility] ([id number]) [address] [place] [address] 02833 Potassium [Moles/Vol] 2.8 mmol/L Low 3.5-5.0 [facility] Comment on above: Performed By: #### C ELOY, CMP, 3040-3, 53654-2, 80857-5 #### [facility] ([id number]) [address] [place] [address] 32804 Protein [Mass/Vol] 7.7 g/dL Normal 6.0-8.0 [facility] Comment on above: Performed By: #### C ELOY CMP, 3040-3, 16749-4, 48265-5 #### [facility] ([id number]) [address] [facility], [place] [address] Sodium [Moles/Vol] 133 mmol/L Low 134-146 [facility] Comment on above: Performed By: #### C BCA, CMP, 3040-3, 78153-1, 86839-3 #### [facility] ([id number]) [address] [place] [address] Urea nitrogen [Mass/Vol] 21 mg/dL Normal 5-23 [facility] Comment on above: Performed By: #### C BCA, CMP, 3040-3, 04687-9, 46704-7 #### [facility] ([id number]) [address] [place] [address] CT ABDOMEN AND PELVIS W CONT on 11-29-2023 CT ABDOMEN AND PELVIS W CONT CT ABDOMEN AND PELVIS W CONT Indication: Abdominal pain lower region with cramping. TECHNIQUE: Enhanced CT of abdomen and pelvis is performed utilizing 100 mL IV Omnipaque 300 contrast medium. No prior comparison. FINDINGS: Extreme lung bases are clear. The liver shows no focal lesion and does not appear to be enlarged. The spleen is not enlarged. Adrenal glands, kidneys, and pancreas are not enlarged. No definite renal calculi or secondary signs for obstruction. The gallbladder is not dilated. The abdominal aorta shows normal caliber. Preaortic left renal vein noted without significant narrowing. No retroperitoneal lymphadenopathy appreciated. No free intra-abdominal air or fluid identified. No significant colonic diverticula appreciated. The appendix appears normal coronal images 45 through 53. IUD is present within the uterus appearing fairly well seated. There appears to be abnormal high density within the endocervical canal axial image 78 measuring up to 2.6 cm x 2.3 cm. Bone windows show no worrisome lesion. IMPRESSION: 1. Apparent abnormal high density within the the endocervical canal region. Correlation to ultrasound with special attention to this region recommended. Neoplasm is not excluded. Nabothian cysts are typically low density. 2. No definite acute findings. All CT scans at this facility use dose modulation, iterative reconstruction, and/or weight based dosing when appropriate to reduce radiation dose to as low as reasonably achievable. Finalized by Barbara Arora MD on 11/29/2023 1:07 PM Normal [facility] LIPASEon 11-29-2023 Lipase [Catalytic activity/Vol] 43 U/L High 17-40 [facility] Comment on above: Performed By: #### C GABY LYONS, 3040-3, 49468-2, 75463-5 #### [facility] ([id number]) [address] [place] [address] 88226 Lactate (P kat) [Moles/Vol]o n 11-29-2023 LACTATE W/REFLEX 1.4 mmol/L Normal 0.4-2.0 [facility] Comment on above: Result Comment: Result did not trigger repeat Lactate, re-order if needed. Performed By: #### C GABY LYONS, 3040-3, 53846-8, 65554-8 #### [facility] ([id number]) [address] [place] [address] 22528 MAGNESIUMon 11-29-2023 Magnesium [Mass/Vol] 2.1 mg/dL Normal 1.8-2.6 [facility] Comment on above: Performed By: #### Jamie LYONS CMP, 3039-3, 61589-0, 95149-0 #### [facility] ([id number]) [address] [place] [address] 48170 URINE CULTUREon 11-29-2023 Bacteria identified Cx Nom (U) CULTURE RESULTS NO GROWTH AT <1000 CFU/mL Normal [facility] Comment on above: Performed By: #### C GABY LYONS, 3040-3 #### [facility] ([id number]) [address] [place] [address] 51514 URN MACROSCOPIC NURon 2023 BILIRUBIN ADAIR Negative Normal NEG [facility] Comment on above: Performed By: #### Jamie LYONS, GABY, 0-3 #### [facility] ([id number]) [address] [place] [address], [place] [address] BLOOD/HGB ADAIR Negative Normal NEG [facility] Comment on above: Performed By: #### C GABY LYONS, 3039-3 #### [facility] ([id number]) [address] [place] [address] [place] [address] GLUCOSE ADAIR Negative Normal NEG [facility] Comment on above: Performed By: #### C GABY LYOSN, 3039-3 #### [facility] ([id number]) [address] [place] [address] [place] [address] KETONES ADAIR Negative Normal NEG [facility] Comment on above: Performed By: #### C GABY LYONS, 3039-3 #### [facility] ([id number]) [address] [place] [address] [place] [address] LEUKOCYTE ESTERASE ADAIR Negative Normal NEG [facility] Comment on above: Performed By: #### Jamie LYONS CMP, 3039-3 #### [facility] ([id number]) [address] [place] [address] [place] [address] NITRITE ADAIR Negative Normal NEG [facility] Comment on above: Performed By: #### C ELOY [facility], 3039-3 #### [facility] ([id number]) [address] [place] [address] [place] [address] PH ADAIR 6.0 Normal 5.0-8.5 [facility] Comment on above: Performed By: #### Jamie LYONS CMP, 3039- #### [facility] ([id number]) [address] [place] [address] 06620 PROTEIN ADAIR Negative Normal NEG [facility] Comment on above: Performed By: #### C GABY LYONS, 3039-3 #### [facility] ([id number]) [address] [place] [address] [place] [address] SPECIFIC GRAVITY ADAIR 1.010 Normal 1.003-1.035 [facility] Comment on above: Performed By: #### C BCA, CMP, 3040-3 #### [facility] ([id number]) [address] [place] [address] 26138 UROBILINOGEN ADAIR 0.2 eu/dL Normal <1.1 [facility] Comment on above: Performed By: #### C BCA, CMP, 3040-3 #### [facility] ([id number]) [address] [place] [address] 32173 US PELVIC WITH TRANSVAGINALo n 11-29-2023 US PELVIC WITH TRANSVAGINAL US PELVIC WITH TRANSVAGINAL US PELVIC WITH TRANSVAGINAL: 11/29/2023 1:45 PM INDICATION: 37 years old Female. high denisty in cervix. COMPARISON: CT abdomen pelvis 11/29/2023 TECHNIQUE: Transabdominal and transvaginal sonographic evaluation of the pelvis was performed. FINDINGS: The uterus measures 10.1 x 3.2 x 4.9 cm. The endometrium measures up to 3 mm. No uterine masses identified. In the endocervical canal there is a heterogenous predominantly hypoechoic avascular lesion measuring 2.5 x 1.8 x 1.7 cm. Intrauterine device is noted which obscures evaluation of the endometrium however appears to be in a favorable location. The right ovary measures 3 x 2.1 x 3.5 cm and is unremarkable. Left ovary is not well seen likely due to adjacent bowel gas. No significant free fluid. IMPRESSION: 2.5 cm heterogenous predominantly hypoechoic avascular lesion in the endocervical canal which may relate to hemorrhagic products. Correlate with menstrual history. Recommend follow-up ultrasound in 6-8 weeks. Finalized by Otoniel Velazquez MD on 11/29/2023 2:34 PM Normal [facility] CBC AND AUTO DIFFon 11-25-19 24 ABSOLUTE BASOPHIL 0.0 X10E9/L Normal 0.0-0.2 [facility] Comment on above: Performed By: #### C BCA, CMP, 3040-3 #### [facility] ([id number]) [address] [place] [address] 76340 ABSOLUTE NEUTROPHIL 5.8 X10E9/L Normal 1.5-6.6 [facility] Comment on above: Performed By: #### Jamie LYONS CMP, 30403 #### [facility] ([id number]) [address] [place] [address] 93445 Basophils/100 WBC (Bld) 0.6 % Normal [facility] Comment on above: Performed By: #### Jamie LYONS CMP, 3039-06 #### [facility] ([id number]) [address] [place] [address] 53565 Eosinophils (Bld) [#/Vol] 0.1 10*3/uL Normal 0.0-0.4 [facility] Comment on above: Performed By: #### Jamie LYONS CMP, 3039-06 #### [facility] ([id number]) [address] [place] [address] 62558 Eosinophils/100 WBC (Bld) 0.8 % Normal [facility] Comment on above: Performed By: #### Jamie LYONS CMP, 3039-06 #### [facility] ([id number]) [address] [place] [address] 46109 Erythrocyte distribution width (RBC) [Ratio] 14.0 % Normal 11.5-15.0 [facility] Comment on above: Performed By: #### Jamie LYONS CMP, 3 #### [facility] ([id number]) [address] [place] [address] 07834 Hematocrit (Bld) [Volume fraction] 42.5 % Normal 35-47 [facility] Comment on above: Performed By: #### Jamie LYONS CMP, 3 #### [facility] ([id number]) [address] [place] [address] 22469 Hemoglobin (Bld) [Mass/Vol] 14.3 g/dL Normal 11.7-15.5 [facility] Comment on above: Performed By: #### Jamie LYONS CMP, 3039-06 #### [facility] ([id number]) [address] [place] [address] 51981 Lymphocytes (Bld) [#/Vol] 2.3 10*3/uL Normal 1.0-3.5 [facility] Comment on above: Performed By: #### Jamie LYONS CMP, 3039-06 #### [facility] ([id number]) [address] [place] [address] 28363 Lymphocytes/100 WBC (Bld) 26.3 % Normal [facility] Comment on above: Performed By: #### Jamie LYONS CMP, 3039-06 #### [facility] ([id number]) [address] [place] [address] 47314 MCH (RBC) [Entitic mass] 29.0 pg Normal 27-34 [facility] Comment on above: Performed By: #### Jamie LYONS CMP, 3039-06 #### [facility] ([id number]) [address] [place] [address] 48421 MCHC (RBC) [Mass/Vol] 33.6 g/dL Normal 32-36 [facility] Comment on above: Performed By: #### Jamie LYONS CMP, 3039-06 #### [facility] ([id number]) [address] [place] [address] 07841 MCV (RBC) [Entitic vol] 86 fL Normal 80-100 [facility] Comment on above: Performed By: #### Jamie LYONS CMP, 3039-06 #### [facility] ([id number]) [address] [place] [address] 05127 Monocytes (Bld) [#/Vol] 0.6 10*3/uL Normal 0-0.9 [facility] Comment on above: Performed By: #### Jamie LYONS CMP, 3040-3 #### [facility] ([id number]) [address] [place] [address] 98654 Monocytes/100 WBC (Bld) 6.4 % Normal [facility] Comment on above: Performed By: #### Jamie LYONS, CMP, 3039-3 #### [facility] ([id number]) [address] [place] [address] 11682 Neutrophils/100 WBC (Bld) 65.9 % Normal [facility] Comment on above: Performed By: #### Jamie LYONS, CMP, 3039-3 #### [facility] ([id number]) [address] [place] [address] 65762 Platelet mean volume (Bld) [Entitic vol] 9.3 fL Normal 7-12 [facility] Comment on above: Performed By: #### Jamie LYONS, CMP, 3 #### [facility] ([id number]) [address] [place] [address] 70493 Platelets (Bld) [#/Vol] 245 10*3/uL Normal 150-450 [facility] Comment on above: Performed By: #### Jamie LYONS, CMP, 3039-3 #### [facility] ([id number]) [address] [place] [address] 21200 RBC COUNT 4.92 X10E12/L Normal 3.80-5.20 [facility] Comment on above: Performed By: #### Jamie LYONS, CMP, 3039-3 #### [facility] ([id number]) [address] [place] [address] 75515 WBC (Bld) [#/Vol] 8.8 10*3/uL Normal 4.0-11.0 [facility] Comment on above: Performed By: #### Jamie LOYNS, CMP, 3039-3 #### [facility] ([id number]) [address] [place] [address] 51741 COMPREHENSIVE METABOLIC PANE Ruddy 11-25-2023 Albumin [Mass/Vol] 3.9 g/dL Normal 3.2-5.3 [facility] Comment on above: Performed By: #### C GABY LYONS, 0-3 #### [facility] ([id number]) [address] [place] [id number] ALP [Catalytic activity/Vol] 79 U/L Normal 39-130 [facility] Comment on above: Performed By: #### C GABY LYONS, 3039-3 #### [facility] ([id number]) [address] [place] [address] [id number] ALT [Catalytic activity/Vol] 18 U/L Normal 0-31 [facility] Comment on above: Performed By: #### Jamie LYONS CMP, 3039-3 #### [facility] ([id number]) [address] [place] [address] [id number] Anion gap [Moles/Vol] 7 mmol/L Normal 5-15 [facility] Comment on above: Performed By: #### C ELOY [facility], 3039-3 #### [facility] ([id number]) [address] [place] [address] 99449 AST [Catalytic activity/Vol] 16 U/L Normal 0-41 [facility] Comment on above: Performed By: #### Jamie LYONS CMP, 3039-3 #### [facility] ([id number]) [address] [place] [address] 06214 Bilirubin [Mass/Vol] 0.5 mg/dL Normal 0.3-1.2 [facility] Comment on above: Performed By: #### Jamie LYONS CMP, 3039-3 #### [facility] ([id number]) [address] [place] [address] 56365 Calcium [Mass/Vol] 8.7 mg/dL Normal 8.5-10.5 [facility] Comment on above: Performed By: #### C ELOY [facility], 0-3 #### [facility] ([id number]) [address] [place] [address] 69057 Chloride [Moles/Vol] 101 mmol/L Normal 98-109 [facility] Comment on above: Performed By: #### C ELOY [facility], 3039-3 #### [facility] ([id number]) [address] [place] [address] 46073 CO2 [Moles/Vol] 27 mmol/L Normal 22-32 [facility] Comment on above: Performed By: #### Jamie LYONS [facility], 3039-3 #### [facility] ([id number]) [address] [place] [address] 50747 Creatinine [Mass/Vol] 1.03 mg/dL High 0.40-1.00 [facility] Comment on above: Result Comment: METH OD TRACEABLE TO IDMS STANDARD Performed By: #### Jamie LYONS [facility], 3039-3 #### [facility] ([id number]) [address] [place] [address] 64415 GFR/1.73 sq M.predicted among non-blacks MDRD (S/P/Bld) [Vol rate/Area] 72 mL/min/{1.73_m2} Normal >59 [facility] Comment on above: Result Comment: Reported eGFR is based on the CKD-EPI 2020 equation that does not use a race coefficient. Performed By: #### C GABY LYONS, 0-3 #### [facility] ([id number]) [address] [place] [address] 39530 Glucose [Mass/Vol] 103 mg/dL High 65-99 [facility] Comment on above: Performed By: #### Jamie LYONS [facility], 3040-3 #### [facility] ([id number]) [address] [place] [address] 07213 Potassium [Moles/Vol] 3.9 mmol/L Normal 3.5-5.0 [facility] Comment on above: Performed By: #### C GABY LYONS, 3040-3 #### [facility] ([id number]) [address] [place] [address] 34987 Protein [Mass/Vol] 7.3 g/dL Normal 6.0-8.0 [facility] Comment on above: Performed By: #### C GABY LYONS, 0-3 #### [facility] ([id number]) [address] [place] [address] 83485 Sodium [Moles/Vol] 135 mmol/L Normal 134-146 [facility] Comment on above: Performed By: #### Jamie LYONS CMP, 3040-3 #### [facility] ([id number]) [address] [place] [address] 72015 Urea nitrogen [Mass/Vol] 12 mg/dL Normal 5-23 [facility] Comment on above: Performed By: #### Jamie LYONS CMP, 3040-3 #### [facility] ([id number]) [address] [place] [address] 16365 LIPASEon 11-25-2023 Lipase [Catalytic activity/Vol] 29 U/L Normal 17-40 [facility] Comment on above: Performed By: #### Jamie LYONS CMP, 3040-3 #### [facility] ([id number]) [address] [place] [address]503 RAPID STREP SCR NURSINGon S. pyogenes Ag EIA Ql (Throat) Negative Normal NEG [facility] Comment on above: Performed By: #### 6 556-5 #### [facility] ([id number]) [address] [place] [address] 20807 BI MAMMOGRAM SCREENING TOMOS YNTHESIS BILATERALon 06-22-2023 [...] IS VERY IMPORTANT TO YOUR HEALTH. THE [employer] [employer] GUIDELINES RECOMMEND THAT WOMEN 40 [...] forehead Your Care Team Attending Physician - Martin RAY MD Primary Care Physician - Guillermo Patel MD [...] of forehead Malignant neoplasm of uterus Normal [facility] Facesheeton 05-11-2022 Facesheet [id number] 10 [id number] 0CD:127 Normal [facility] Physician Referralon 023 Physician Referral [id number] 10 [id number] 0CD:127 Normal [facility] Covid-19 PCR (CVDTB)on 03-17 SARS-CoV-2 (COVID-19) RNA [...] for this test is supported by the [place] of Health and Human Service's (HHS's) declaration [...] consistent with SARS-CoV-2. Performed By: #### [facility] #### [facility] [address] [place] [address] Dr. Fany Griggs INFLUENZA A AND B AGon 04-05 INFLUANEGH SEE BELOW Normal [facility] Comment on above: Result Comment: Nega tive for Flu A protein angiten. Infection due to Flu A cannot be ruled out. Flu A angiten in the sample may be below the detection limit of the test. Performed By: #### I NFLUAB #### [facility] [address] [place] [address] Dr. Fany Griggs [facility] SEE BELOW [facility] Comment on above: Result Comment: Nega tive for Flu B protein antigen. Infection due to Flu B cannot be ruled out. Flu B antigen in the sample may be below the detection limit of the test. Performed By: #### I NFLUAB #### [facility] [address] [place] [address] Dr. Fany Griggs INFLUENZA A AG Negative Normal NEGATIVE SEE COMMENT [facility] Comment on above: Performed By: #### I NFLUAB #### [facility] [address] [place] [address] Dr. Fany Griggs INFLUENZA B AG Negative Normal NEGATIVE SEE COMMENT [facility] Comment on above: Performed By: #### I NFLUAB #### [facility] [address] [place] [address] Dr. Fany Griggs INTERNAL CONTROLS Within Normal Limits Normal Wi thin Normal Limits [facility] Comment on above: Performed By: #### I NFLUAB #### [facility] [address] [place] [address] Dr. Fany Griggs PAP ACOG PANEL 2: 30 to 65on 02-14-2021 . . Normal [facility] Comment on above: Result Comment: Perf ormed at: WB Performed By: #### 4 [id number] #### [facility] [address] [place] [address] Dr. Fany Griggs DIAGNOSIS: Comment Normal [facility] Comment on above: Result Comment: NEGA TIVE FOR INTRAEPITHELIAL LESION OR MALIGNANCY. Performed at: WB Performed By: #### 4 [id number] #### [facility] [address] [place] [address] Dr. Fany Griggs HPV Aptima Negative Normal Negative [facility] Comment on above: Result Comment: This nucleic acid amplification test detects fourteen high-risk HPV types (16,18,31,33,35,39,45,51,52,56,58,59,66,68) without differentiation. Performed at: =G Performed By: #### 4 [id number] #### [facility] [address] [place] [address] Dr. Fany Griggs Methodology: Comment Normal [facility] Comment on above: Result Comment: This liquid based ThinPrep(R) pap test was screened with the use of an image guided system. Performed at: WB Performed By: #### 4 [id number] #### [facility] [address] [place] [address] Dr. Fany Griggs Note: Comment Normal [facility] Comment on above: Result Comment: The Pap smear is a screening test designed to aid in the detection of premalignant and malignant conditions of the uterine cervix. It is not a diagnostic procedure and should not be used as the sole means of detecting cervical cancer. Both false-positive and false-negative reports do occur. . Performed at: WB Performed By: #### 4 [id number] #### [facility] [address] [place] [address] Dr. Fany Griggs Performed by: Comment Normal [facility] Comment on above: Result Comment: Silvia Tafoya, Melter Supervisor [employer] (ASCP) Performed at: WB Performed By: #### 4 [id number] #### [facility] [address] [place] [address] Dr. Fany Griggs Specimen adequacy: Comment Normal [facility] Comment on above: Result Comment: Sati sfactory for evaluation. Endocervical and/or squamous metaplastic cells (endocervical component) are present. Performed at: WB Performed By: #### 4 [id number] #### [facility] [address] [place] [address] Dr. Fany Griggs Age Gdln ACOG Testing 30-65 Normal [facility] Comment on above: Performed By: #### 4 [id number] #### [facility] [address] [place] [address] Dr. Fany Griggs Covid-19 PCR ([facility])on 12-16 SARS-CoV-2 (COVID-19) RNA TANIKA+probe Ql (Unsp spec) Not detected Normal NOT DETECTED [facility] Comment on above: Result Comment: This test is not yet approved or cleared by the [place] FDA. When there are no FDA-approved or cleared tests available, and other criteria are met, FDA can make tests available under an emergency access mechanism called an Emergency Use Authorization (EUA). The EUA for this test is supported by the [place] of Health and Human Service's (HHS's) declaration [...] consistent with SARS-CoV-2. Performed By: #### C [facility] #### [facility] [address] [place] [address] Dr. Fany Griggs Vital Signs Date Time Vital Sign Value Performing Clinician Oralia winston 05-10-2022 15:41-0500 Blood Pressure Location [employer] [facility] 05-10-2022 15:41-0500 Diastolic blood pressure 88 mm[Hg] [employer]NEWi[employer] [facility] 05-10-2022 15:41-0500 Heart rate 80 /min [employer] [facility] 05-10-2022 15:41-0500 Respiratory rate 16 /min [employer]NEW[employer] [facility] 05-10-2022 15:41-0500 Systolic blood pressure 130 mm[Hg] [employer] [facility] Encounters Encounter Date Encounter Type Care Provider Facility Start: 2023 End: 2023 ambulatory FABIANO WORLEY Not Available Start: 11-29-2023 End: 11-30-2023 Emergency department patient visit SUMANTH ENCARNACION [facility] Start: 11-29-2023 End: 11-29-2023 Emergency department patient visit GUILLERMO M [facility] Start: 11-25-2023 End: 11-25-2023 Emergency department patient visit GUILLERMO M [facility] Start: 10-23-2023 End: 10-23-2023 ambulatory [facility] Start: 09-20-2023 End: 10-15-2023 ambulatory [facility] Start: 08-16-2023 End: 08-16-2023 ambulatory [facility] Start: 08-15-2023 End: 09-15-2023 ambulatory [facility] Start: 08-03-2023 End: 08-04-2023 ambulatory HUYEN [facility] Start: 08-02-2023 End: 08-15-2023 ambulatory [facility] Start: 07-26-2023 End: 07-26-2023 ambulatory [facility] Start: 07-16-2023 ambulatory [facility] Start: 06-22-2023 End: 06-22-2023 ambulatory KEISHA GROVES Not Available Start: 03-19-2023 End: 03-19-2023 ambulatory KEISHA GROVES Not Available Start: 05-10-2022 End: 05-11-2022 ambulatory Martin RAY Facility:[facility] Start: 05-10-2022 End: 05-10-2022 Patient encounter procedure Martin RAY [facility] Start: 04-21-2022 ambulatory Martin RAY Facility:[facility] Start: 04-05-2021 End: 04-05-[address] GUILLERMO PATEL Facility:[facility] Start: 02-09-2021 End: 02-09-[address] FABIANO WORLEY Facility:[facility] Start: 01-05-2021 End: 01-05-[address] GUILLERMO PATEL Facility:[facility] Procedures Date Procedure Procedure Detail Performing Clinician Bladder excision Martin WALTER Sharri Comment on above: mouth section Martin WALTER Sharri Extraction of wisdom tooth Martin RAY Immunizations Immunization Date Immunization Notes Care Provider Fa cility 09-09-2020 SARS-CoV-2 (COVID-19 ) mRNA BNT-162b2 vax Martin WALTERL [facility] Comment on above: Result Comment: 2022: TPVAL 08-19-2020 SARS-CoV-2 (COVID-19 ) mRNA BNT-162b2 vax Martin RAY [facility] Comment on above: Result Comment: 2022: TPVAL 04-12-2013 tetanus toxoid, reduced diphtheria toxoid, and acellular pertussis vaccine, adsorbed Martin RAY [facility] Comment on above: Result Comment: give n to left deltoid NEGATED: Highlighted row has not occurred!05-10-2022 influenza virus vaccine, unspecified formulation Martin RAY [facility] Payers Date Payer Category Payer Unknown [id number] 2017 Unknown 1985 Unknown [id number] 2.16.84 0.1.842041.3.579.2.593 1985 Unknown [id number] 2.16.84 0.1.191278.3.579.2.593 1985 Unknown [id number] 2.16.84 0.1.365091.3.579.2.593 1985 Unknown [id number] 2.16.8 40.1.055214.3.579.2.727 1985 Unknown [id number] 2.16.8 40.1.169175.3.579.2.727 1985 Unknown [id number] 2.16.8 40.1.918133.3.579.2.1285 1985 Unknown [id number] 2.16.8 40.1.693543.3.579.2.1285 1985 Unknown [id number] 2.16.8 40.1.315493.3.579.2.1285 1985 Unknown [id number] 2.16.8 40.1.250808.3.579.2.1285 1985 Unknown [id number] 2.16.8 40.1.482889.3.579.2.1285 1985 Unknown [id number] 2.16.8 40.1.855635.3.579.2.1285 1985 Unknown [id number] 2.16.8 40.1.946987.3.579.2.1285 1985 Unknown [id number] 2.16.8 40.1.524704.3.579.2.1285 1985 Unknown [id number] 2.16.8 40.1.406672.3.579.2.1285 1985 Unknown [id number] 2.16.8 40.1.662328.3.579.2.1285 1985 Unknown [id number] 2.16.8 40.1.147571.3.579.2.1285 1985 Unknown [id number] 2.16.8 40.1.858111.3.579.2.1285 1985 Unknown [id number] 2.16.8 40.1.926219.3.579.2.1285 1985 Unknown [id number] 2.16.8 40.1.432277.3.579.2.1285 1985 Unknown [id number] 2.16.8 40.1.680539.3.579.2.1285 1985 Unknown [id number] 2.16.8 40.1.204483.3.579.2.1285 1985 Unknown [id number] 2.16.8 40.1.006236.3.579.2.1286 1985 Unknown [id number] 2.16.84 0.1.250564.3.579.2.1259 1985 Unknown [id number] 2.16.84 0.1.906296.3.579.2.1259 1985 Unknown [id number] 2.16.840 .1.377805.3.579.2.1259 1959 Private Health Insurance [id number] Social History Date Type Detail Facility Start: 05-10-2022 Tobacco smoking status Heavy t obacco smoker (finding) [facility] [place] Tobacco smoking status Never [facility] [place] Sex Assigned At Female [facility] Functional Status Date Assessment Result Facility 05-10-2022 Functional Status N/A [facility] [place] Clinical Note 05-10-2022 Note Date & Type [...] and neck) discussed excision under local at [facility]; patient anxious and feels she would require general anesthesia; patient also concerned about scarring and would like to discuss this with a Plastic surgeon; recommend she be evaluated by Dr Armendariz in [place]; call with problems/questions. Follow-up No qualifying data [...] adult 04/12/2013 Given given to left deltoid [facility] Comment on above: Result Comment: Elec tronically Signed By: CORY THACKER, Martin Canchola\.shivam\Date and Time Signed: 05/10/22 16:35 EST Evaluation + Plan note Note Date & Type Note Facility Evaluation + Plan note No data available for this section [facility] [place] [facility] Discharge instructions Note Date & Type Note Facility Hospital Discharge instructions No data available for this section [facility] [place] Progress note Note Date & Type Note Facility Progress note No data available for this section [facility] [place] Summary Purpose Family History No Family History Records FoundNo Family History Records FoundNo Family History Records FoundNo Family History Records FoundNo Family History Records Found Advance Directives No Advanced Directives Records FoundNo Advanced Directives Records FoundNo Advanced Directives Records FoundNo Advanced Directives Records FoundNo Advanced Directives Records Found Additional Source Comments INFORMATION SOURCE (unrecogn ized section and content) DATE CREATED AUTHOR 04/13/[address] [facility] DATE CREATED AUTHOR AUTHOR'S ORGANIZ ATION 05/18/2022 [facility] DATE CREATED AUTHOR AUTHOR'S ORGANIZ ATION 08/03/2023 [facility] DATE CREATED AUTHOR AUTHOR'S ORGANIZ ATION 12/01/2023 [facility] DATE CREATED AUTHOR AUTHOR'S ORGANIZ ATION 12/13/2023 [facility] EPIC Patient Care team informatio n (unrecognized section and content) Personnel Name: Guillermo Patel MD Address: Address: [address] [place] [address] FOR RECORDS PERTAINING TO PATIENTS WHO ARE [...] BE BASED ON THE PRIMARY CLINICAL RECORDS. [facility] [employer] provides no warranty or guarantee of the accuracy or completeness of information in this document.
== END 2024-03-04 10:32 | disposition home or self-care (01) ==
LOC: NOMS 10:32
PROVIDERS: PCP Family Medicine; Visit Provider Obstetrics & Gynecology
DX: N88.8 Other specified noninflammatory disorders of cervix uteri (principal)
CPT/HCPCS: 76830; 76856

== ENCOUNTER 2024-04-07 20:43 | Outpatient (REF) | payer BC, SELFPAY ==
--- OUTSIDE RECORDS SUMMARY | 2024-04-07 20:46 | XMS_ITS | CCD ---
Author Organization [facility] Care Team Providers Care Jewellery Designer Name Role Phone DR GUILLERMO PATEL Admitting Unavailable AMANDA, DR LI Primary Care Unavailable AMANDA, DR LI Consulting Unavailable AMANDA, DR LI Attending Unavailable BURKE, DR MARIO Admitting Unavailable BURKE, DR MARIO Consulting Unavailable BURKE, DR MARIO Attending Unavailable AMANDA, DR LI Admitting Unavailable AMANDA, DR LI Consulting Unavailable AMANDA, DR LI Attending Unavailable Edson Patellas Primary [...] Referring Unavailable KEISHA GROVES Attending Unavailable FABIANO TURK Attending Unavailable Guillermo Patel MD Primary Care Provider [phone] Allergies Allergy Classification Reported Allergen(s) Allergy Type Date of Onset Reaction(s) Facility (1 source) No Known Medication Allergies; Translations: [No Known Medication Allergies] Propensity to adverse reactions (disorder) [facility] Repository Medications Current Medications Medication Drug Class(es) [...] for anxiety Start Date: 04/11/13 Status: Ordered phentermine hydrochloride 37.5 mg oral tablet (3 sources) Sympathomimetic Amine Anorectic Start: 08-15-2023 take 1 tablet by mouth before mealtime Adipex-P 37.5 MG tablet Take 37.5 mg by mouth in the morning. Take before meals. 08/15/2023 Active traZODone hydrochloride 100 mg oral tablet (3 sources) Serotonin Reuptake Inhibitor Start: 10-15-2023 traZODone (Desyrel) 100 MG tablet 1 (one) time each day at the same time 10/15/2023 Active Completed/Discontinued Medications Medication Drug Class(es) Dates Sig (Normalized) Sig (Original) levoFLOXacin 750 mg oral tablet (3 sources) Quinolone Antimicrobial Start: 10-16-2022 End: 2023 levoFLOXacin (Levaquin) 750 MG tablet Take 250 mg by mouth in the morning. 10/16/2022 2023 Discontinued (Other) Problems Active Problems Problem Classification Problem Date [...] Other Problems Problem Classification Problem Date Documented Date Episodic/Chronic Other female genital disorders (2 sources) Lump of cervix; Translations: [Other specified noninflammatory disorders of cervix uteri] 2023 Episodic Spondylosis; intervertebral disc disorders; other back problems (2 sources) Spinal stenosis, lumbar region with neurogenic claudication; Translations: [Backache] Onset: 07-26-2023 Episodic Unclassified (1 source) CONTACT W/AND (SUSP) EXPOS COVID-19; Translations: [CONTACT W/AND (SUSP) EXPOS COVID-19] Onset: 04-05-2021 Results Test Name Value Interpretation Reference Range Facility CBC AND AUTO DIFFon 11-29-19 ABSOLUTE BASOPHIL 0.0 X10E9/L Normal 0.0-0.[address] [facility] Comment on above: Performed By: #### C BCA, CMP, 3040-3, 32466-0, 51514-9 #### [facility] ([id number]) [address] [place] [address] 22601 ABSOLUTE NEUTROPHIL 12.5 X10E9/L High 1.5-6.6 [facility] Comment on above: Performed By: #### C BCA, CMP, 3040-3, 43097-4, 63529-9 #### [facility] ([id number]) [address] [place] [address] 25129 Basophils/100 WBC (Bld) 0.2 % Normal [facility] Comment on above: Performed By: #### C BCA, CMP, 3040-3, 74252-1, 28896-3 #### [facility] ([id number]) [address] [place] [address] 14348 Eosinophils (Bld) [#/Vol] 0.0 10*3/uL Normal 0.0-0.4 [facility] Comment on above: Performed By: #### C BCA, CMP, 3040-3, 71742-0, 46307-8 #### [facility] ([id number]) [address] [place] [address] 90643 Eosinophils/100 WBC (Bld) 0.0 % Normal [facility] Comment on above: Performed By: #### C BCA, CMP, 3040-3, , 27052-6 #### [facility] ([id number]) [address] [place] [address] 44263 Erythrocyte distribution width (RBC) [Ratio] 13.8 % Normal 11.5-15.0 [facility] Comment on above: Performed By: #### C BCA, CMP, 3040-3, , 48995-4 #### [facility] ([id number]) [address] [place] [address] 97034 Hematocrit (Bld) [Volume fraction] 43.7 % Normal 35-47 [facility] Comment on above: Performed By: #### C BCA, CMP, 3040-3, , 11910-9 #### [facility] ([id number]) [address] [place] [address] 27264 Hemoglobin (Bld) [Mass/Vol] 14.4 g/dL Normal 11.7-15.5 [facility] Comment on above: Performed By: #### C BCA, CMP, 3040-3, , 25517-2 #### [facility] ([id number]) [address] [place] [address] 10631 Lymphocytes (Bld) [#/Vol] 2.1 10*3/uL Normal 1.0-3.5 [facility] Comment on above: Performed By: #### C BCA, CMP, 3040-3, , 26660-9 #### [facility] ([id number]) [address] [place] [address] 36751 Lymphocytes/100 WBC (Bld) 13.6 % Normal [facility] Comment on above: Performed By: #### C ELOY, CMP, 3040-3, , 06495-1 #### [facility] ([id number]) [address] [place] [address] 19484 MCH (RBC) [Entitic mass] 28.5 pg Normal 27-34 [facility] Comment on above: Performed By: #### C ELOY, CMP, 0-3, , 56619-6 #### [facility] ([id number]) [address] [place] [address] 74033 MCHC (RBC) [Mass/Vol] 33.0 g/dL Normal 32-36 [facility] Comment on above: Performed By: #### Jamie LYONS, CMP, 3, , 64410-7 #### [facility] ([id number]) [address] [place] [address] 77457 MCV (RBC) [Entitic vol] 86 fL Normal 80-100 [facility] Comment on above: Performed By: #### C ELOY, CMP, 03, , 57193-2 #### [facility] ([id number]) [address] [place] [address] 10113 Monocytes (Bld) [#/Vol] 0.6 10*3/uL Normal 0-0.9 [facility] Comment on above: Performed By: #### C BCA, CMP, 0-3, , 99198-3 #### [facility] ([id number]) [address] [place] [address] 06931 Monocytes/100 WBC (Bld) 3.9 % Normal [facility] Comment on above: Performed By: #### C BCA, CMP, 0-3, 99074-1, 81741-3 #### [facility] ([id number]) [address] [place] [address] 26024 Neutrophils/100 WBC (Bld) 82.3 % Normal [facility] Comment on above: Performed By: #### C BCA, CMP, 3040-3, 72564-0, 89413-0 #### [facility] ([id number]) [address] [place] [address] 62266 Platelet mean volume (Bld) [Entitic vol] 9.6 fL Normal 7-12 [facility] Comment on above: Performed By: #### C BCA, CMP, 3040-3, 51800-4, 05352-6 #### [facility] ([id number]) [address] [place] [address] 53806 Platelets (Bld) [#/Vol] 273 10*3/uL Normal 150-450 [facility] Comment on above: Performed By: #### C BCA, CMP, 3040-3, 47174-0, 40697-8 #### [facility] ([id number]) [address] [place] [address] 66623 RBC COUNT 5.06 X10E12/L Normal 3.80-5.20 [facility] Comment on above: Performed By: #### C BCA, CMP, 3040-3, 89584-6, 92191-9 #### [facility] ([id number]) [address] [place] [address] 37203 WBC (Bld) [#/Vol] 15.2 10*3/uL High 4.0-11.0 [facility] Comment on above: Performed By: #### C BCA, CMP, 3040-3, 37571-4, 94719-2 #### [facility] ([id number]) [address] [place] [address] 51313 COMPREHENSIVE METABOLIC PANE Ruddy 11-29-2023 Albumin [Mass/Vol] 4.2 g/dL Normal 3.2-5.[address] [facility] Comment on above: Performed By: #### C BCA, CMP, 3040-3, 82501-6, 96970-7 #### [facility] ([id number]) [address] [place] [address] 48070 ALP [Catalytic activity/Vol] 71 U/L Normal 39-130 [facility] Comment on above: Performed By: #### C BCA, CMP, 3040-3, 57531-7, 91334-5 #### [facility] ([id number]) [address] [place] [address] 00156 ALT [Catalytic activity/Vol] 32 U/L High 0-31 [facility] Comment on above: Performed By: #### C BCA, CMP, 3040-3, 52044-8, 00111-1 #### [facility] ([id number]) [address] [place] [address] 88361 Anion gap [Moles/Vol] 10 mmol/L Normal 5-15 [facility] Comment on above: Performed By: #### C BCA, CMP, 3040-3, 07973-9, 26076-5 #### [facility] ([id number]) [address] [place] [address] 00706 AST [Catalytic activity/Vol] 25 U/L Normal 0-41 [facility] Comment on above: Performed By: #### C BCA, CMP, 3040-3, 26845-0, 42507-2 #### [facility] ([id number]) [address] [place] [address] 29525 Bilirubin [Mass/Vol] 0.8 mg/dL Normal 0.3-1.2 [facility] Comment on above: Performed By: #### C BCA, CMP, 3040-3, 49614-5, 07258-6 #### [facility] ([id number]) [address] [place] [address] 63306 Calcium [Mass/Vol] 8.5 mg/dL Normal 8.5-10.[address] [facility] Comment on above: Performed By: #### C BCA, CMP, 3040-3, 48332-1, 92675-4 #### [facility] ([id number]) [address] [place] [address] 46200 Chloride [Moles/Vol] 100 mmol/L Normal 98-109 [facility] Comment on above: Performed By: #### C BCA, CMP, 3040-3, , 80526-5 #### [facility] ([id number]) [address] [place] [address] 97260 CO2 [Moles/Vol] 23 mmol/L Normal 22-32 [facility] Comment on above: Performed By: #### C BCA, CMP, 3040-3, , 31521-4 #### [facility] ([id number]) [address] [place] [address] 10711 Creatinine [Mass/Vol] 1.14 mg/dL High 0.40-1.00 [facility] Comment on above: Result Comment: METH OD TRACEABLE TO IDMS STANDARD Performed By: #### C BCA, CMP, 3040-3, 80369-3, 57284-6 #### [facility] ([id number]) [address] [place] [address] 47194 GFR/1.73 sq M.predicted among non-blacks MDRD (S/P/Bld) [Vol rate/Area] 64 mL/min/{1.73_m2} Normal >59 [facility] Comment on above: Result Comment: Reported eGFR is based on the CKD-EPI 2020 equation that does not use a race coefficient. Performed By: #### C BCA, CMP, 3040-3, 33894-1, 66302-8 #### [facility] ([id number]) [address] [place] [address] 49123 Glucose [Mass/Vol] 106 mg/dL High 65-[address] [facility] Comment on above: Performed By: #### C BCA, CMP, 3040-3, 03622-8, 14372-5 #### [facility] ([id number]) [address] [place] [address] 90558 Potassium [Moles/Vol] 2.8 mmol/L Low 3.5-5.0 [facility] Comment on above: Performed By: #### C BCA, CMP, 3040-3, 76031-6, 43730-9 #### [facility] ([id number]) [address] [place] [address] 16017 Protein [Mass/Vol] 7.7 g/dL Normal 6.0-8.[address] [facility] Comment on above: Performed By: #### C BCA, CMP, 3040-3, 60764-8, 95230-4 #### [facility] ([id number]) [address] [place] [address] 94889 Sodium [Moles/Vol] 133 mmol/L Low 134-[address] [facility] Comment on above: Performed By: #### C BCA, CMP, 3040-3, 88364-5, 28597-8 #### [facility] ([id number]) [address] [place] [address] 67245 Urea nitrogen [Mass/Vol] 21 mg/dL Normal 5-23 [facility] Comment on above: Performed By: #### C BCA, CMP, 3040-3, 11378-9, 47839-1 #### [facility] ([id number]) [address] [place] [address] ABDOMEN AND PELVIS W CONT on [...] Arora MD on 11/29/2023 1:[address] [facility] LIPASEon 11-29-2023 Lipase [Catalytic activity/Vol] 43 U/L High 17-40 [facility] Comment on above: Performed By: #### C GABY LYONS, 3040-3, 86117-1, 12914-5 #### [facility] ([id number]) [address] [place] [address] 15704 Lactate (P kat) [Moles/Vol]o n 11-29-2023 LACTATE W/REFLEX 1.4 mmol/L Normal 0.4-2.0 [facility] Comment on above: Result Comment: Result did not trigger repeat Lactate, re-order if needed. Performed By: #### C ELOY CMP, 3040-3, 41384-4, 05287-6 #### [facility] ([id number]) [address] [place] [address], [place] [address] MAGNESIUMon 11-29-2023 Magnesium [Mass/Vol] 2.1 mg/dL Normal 1.8-2.6 [facility] Comment on above: Performed By: #### Jamie LYONS CMP, 3039-3, 07117-5, 04434-5 #### [facility] ([id number]) [address] [place] [address] 20696 URINE CULTUREon 11-29-2023 Bacteria identified Cx Nom (U) CULTURE RESULTS NO GROWTH AT <1000 CFU/mL Normal [facility] Comment on above: Performed By: #### Jamie LYONS CMP, 3039-3 #### [facility] ([id number]) [address] [place] [address] 39055 URN MACROSCOPIC NURon 2023 BILIRUBIN ADAIR Negative Normal NEG [facility] Comment on above: Performed By: #### Jamie LYONS CMP, 3 #### [facility] ([id number]) [address] [place] [address] 40241 BLOOD/HGB ADAIR Negative Normal NEG [facility] Comment on above: Performed By: #### Jamie LYONS CMP, 3039-06 #### [facility] ([id number]) [address] [place] [address] 92992 GLUCOSE ADAIR Negative Normal NEG [facility] Comment on above: Performed By: #### Jamie LYONS CMP, 3039-3 #### [facility] ([id number]) [address] [place] [address] [place] [address] KETONES ADAIR Negative Normal NEG [facility] Comment on above: Performed By: #### Jamie LYONS CMP, 3039-3 #### [facility] ([id number]) [address] [place] [address] [place] [address] LEUKOCYTE ESTERASE ADAIR Negative Normal NEG [facility] Comment on above: Performed By: #### Jamie LYONS CMP, 3039-3 #### [facility] ([id number]) [address] [place] [address] 64202 NITRITE ADAIR Negative Normal NEG [facility] Comment on above: Performed By: #### C ELOY, [facility], 3040-3 #### [facility] ([id number]) [address] [place] [address] 07931 PH ADAIR 6.0 Normal 5.0-8.5 [facility] Comment on above: Performed By: #### C ELOY, [facility], 3040-3 #### [facility] ([id number]) [address] [place] [address] 65644 PROTEIN ADAIR Negative Normal NEG [facility] Comment on above: Performed By: #### C ELOY [facility], 3040-3 #### [facility] ([id number]) [address] [place] [address] 64912 SPECIFIC GRAVITY ADAIR 1.010 Normal 1.003-1.035 [facility] Comment on above: Performed By: #### C ELOY, [facility], 3040-3 #### [facility] ([id number]) [address] [place] [address] 20014 UROBILINOGEN ADAIR 0.2 eu/dL Normal <1.1 [facility] Comment on above: Performed By: #### Jamie LYONS [facility], 3040-3 #### [facility] ([id number]) [address] [place] [address] 60192 US PELVIC WITH TRANSVAGINALo n 11-29-2023 US [...] Velazquez MD on 11/29/2023 2:[address] [facility] CBC AND AUTO DIFFon 11-25-19 24 ABSOLUTE BASOPHIL 0.0 X10E9/L Normal 0.0-0.[address] [facility] Comment on above: Performed By: #### C ELOY [facility], 3040-3 #### [facility] ([id number]) [address] [place] [address] 63238 ABSOLUTE NEUTROPHIL 5.8 X10E9/L Normal 1.5-6.6 [facility] Comment on above: Performed By: #### C ELOY [facility], 3040-3 #### [facility] ([id number]) [address] [place] [address] 52601 Basophils/100 WBC (Bld) 0.6 % Normal [facility] Comment on above: Performed By: #### C GABY LYONS, 3040-3 #### [facility] ([id number]) [address] [place] [address] 85463 Eosinophils (Bld) [#/Vol] 0.1 10*3/uL Normal 0.0-0.4 [facility] Comment on above: Performed By: #### C GABY LYONS, 3040-3 #### [facility] ([id number]) [address] [place] [address] 75846 Eosinophils/100 WBC (Bld) 0.8 % Normal [facility] Comment on above: Performed By: #### Jamie LYONS [facility], 3 #### [facility] ([id number]) [address] [place] [address] 63113 Erythrocyte distribution width (RBC) [Ratio] 14.0 % Normal 11.5-15.0 [facility] Comment on above: Performed By: #### Jamie LYONS [facility], 3039-06 #### [facility] ([id number]) [address] [place] [address] 55758 Hematocrit (Bld) [Volume fraction] 42.5 % Normal 35-47 [facility] Comment on above: Performed By: #### Jamie LYONS CMP, 3039-06 #### [facility] ([id number]) [address] [place] [address] 06613 Hemoglobin (Bld) [Mass/Vol] 14.3 g/dL Normal 11.7-15.5 [facility] Comment on above: Performed By: #### Jamie LYONS [facility], 3039-06 #### [facility] ([id number]) [address] [place] [address] 40253 Lymphocytes (Bld) [#/Vol] 2.3 10*3/uL Normal 1.0-3.5 [facility] Comment on above: Performed By: #### Jamie LYONS [facility], 3039-06 #### [facility] ([id number]) [address] [place] [address] 87468 Lymphocytes/100 WBC (Bld) 26.3 % Normal [facility] Comment on above: Performed By: #### Jamie LYONS CMP, 3039-06 #### [facility] ([id number]) [address] [place] [address] 14754 MCH (RBC) [Entitic mass] 29.0 pg Normal 27-34 [facility] Comment on above: Performed By: #### Jamie LYONS CMP, 3039-3 #### [facility] ([id number]) [address] [place] [address] 21157 MCHC (RBC) [Mass/Vol] 33.6 g/dL Normal 32-36 [facility] Comment on above: Performed By: #### Jamie LYONS CMP, 3039-3 #### [facility] ([id number]) [address] [place] [address] 08938 MCV (RBC) [Entitic vol] 86 fL Normal 80-100 [facility] Comment on above: Performed By: #### Jamie LYONS CMP, 3 #### [facility] ([id number]) [address] [place] [address] 03750 Monocytes (Bld) [#/Vol] 0.6 10*3/uL Normal 0-0.9 [facility] Comment on above: Performed By: #### Jamie LYONS, CMP, 3039-06 #### [facility] ([id number]) [address] [place] [address] 20141 Monocytes/100 WBC (Bld) 6.4 % Normal [facility] Comment on above: Performed By: #### Jamie LYONS, CMP, 3039-06 #### [facility] ([id number]) [address] [place] [address] 25066 Neutrophils/100 WBC (Bld) 65.9 % Normal [facility] Comment on above: Performed By: #### Jamie LYONS, CMP, 3039-3 #### [facility] ([id number]) [address] [place] [address] 74545 Platelet mean volume (Bld) [Entitic vol] 9.3 fL Normal 7-12 [facility] Comment on above: Performed By: #### Jamie LYONS, CMP, 3039-3 #### [facility] ([id number]) [address] [place] [address] 45528 Platelets (Bld) [#/Vol] 245 10*3/uL Normal 150-450 [facility] Comment on above: Performed By: #### C BCA, CMP, 3040-3 #### [facility] ([id number]) [address] [place] [address] 57808 RBC COUNT 4.92 X10E12/L Normal 3.80-5.20 [facility] Comment on above: Performed By: #### C BCA, CMP, 3040-3 #### [facility] ([id number]) [address] [place] [address] 90174 WBC (Bld) [#/Vol] 8.8 10*3/uL Normal 4.0-11.[address] [facility] Comment on above: Performed By: #### Jamie BCA, CMP, 3040-3 #### [facility] ([id number]) [address] [place] [address] 67860 COMPREHENSIVE METABOLIC PANE Ruddy 11-25-2023 Albumin [Mass/Vol] 3.9 g/dL Normal 3.2-5.[address] [facility] Comment on above: Performed By: #### C BCA, CMP, 3040-3 #### [facility] ([id number]) [address] [place] [address] 59444 ALP [Catalytic activity/Vol] 79 U/L Normal 39-130 [facility] Comment on above: Performed By: #### C BCA, CMP, 3040-3 #### [facility] ([id number]) [address] [place] [address] 02595 ALT [Catalytic activity/Vol] 18 U/L Normal 0-31 [facility] Comment on above: Performed By: #### Jamie BCA, CMP, 3040-3 #### [facility] ([id number]) [address] [place] [address] [place] [address] Anion gap [Moles/Vol] 7 mmol/L Normal 5-15 [facility] Comment on above: Performed By: #### C ELOY CMP, 0-3 #### [facility] ([id number]) [address] [place] [address] 08750 AST [Catalytic activity/Vol] 16 U/L Normal 0-41 [facility] Comment on above: Performed By: #### C ELOY CMP, 3 #### [facility] ([id number]) [address] [place] [address] 13438 Bilirubin [Mass/Vol] 0.5 mg/dL Normal 0.3-1.2 [facility] Comment on above: Performed By: #### C ELOY CMP, 3 #### [facility] ([id number]) [address] [place] [address] 96501 Calcium [Mass/Vol] 8.7 mg/dL Normal 8.5-10.[address] [facility] Comment on above: Performed By: #### C ELOY [facility], 3 #### [facility] ([id number]) [address] [place] [address] 45782 Chloride [Moles/Vol] 101 mmol/L Normal 98-109 [facility] Comment on above: Performed By: #### C BCA, CMP, 3039-3 #### [facility] ([id number]) [address] [place] [address] [place] [address] CO2 [Moles/Vol] 27 mmol/L Normal 22-32 [facility] Comment on above: Performed By: #### C BCA, CMP, 3039-3 #### [facility] ([id number]) [address] [place] [address] [place] [address] Creatinine [Mass/Vol] 1.03 mg/dL High 0.40-1.00 [facility] Comment on above: Result Comment: METH OD TRACEABLE TO IDMS STANDARD Performed By: #### C GABY LYONS, 3040-3 #### [facility] ([id number]) [address] [place] [address] 08502 GFR/1.73 sq M.predicted among non-blacks MDRD (S/P/Bld) [Vol rate/Area] 72 mL/min/{1.73_m2} Normal >59 [facility] Comment on above: Result Comment: Reported eGFR is based on the CKD-EPI 2020 equation that does not use a race coefficient. Performed By: #### C GABY LYONS, 3040-3 #### [facility] ([id number]) [address] [place] [id number] Glucose [Mass/Vol] 103 mg/dL High 65-[address] [facility] Comment on above: Performed By: #### Jamie LYONS CMP, 3039-3 #### [facility] ([id number]) [address] [place] [address] 18603 Potassium [Moles/Vol] 3.9 mmol/L Normal 3.5-5.0 [facility] Comment on above: Performed By: #### Jamie LYONS CMP, 3 #### [facility] ([id number]) [address] [place] [address] 40719 Protein [Mass/Vol] 7.3 g/dL Normal 6.0-8.[address] [facility] Comment on above: Performed By: #### C GABY LYONS, 0-3 #### [facility] ([id number]) [address] [place] [address] 21824 Sodium [Moles/Vol] 135 mmol/L Normal 134-[address] [facility] Comment on above: Performed By: #### Jamie LYONS CMP, 0-3 #### [facility] ([id number]) [address] [place] [address]23 Urea nitrogen [Mass/Vol] 12 mg/dL Normal 5-23 [facility] Comment on above: Performed By: #### C BCA, CMP, 3040-3 #### [facility] ([id number]) [address] [place] [address] LIPASEon 11-25-2023 Lipase [Catalytic activity/Vol] 29 U/L Normal 17-40 [facility] Comment on above: Performed By: #### C BCA, CMP, 3040-3 #### [facility] ([id number]) [address] [place] [address] RAPID [address]REP SCR NURSINGon S. pyogenes Ag EIA Ql (Throat) Negative Normal NEG [facility] Comment on above: Performed By: #### 6 556-5 #### [facility] ([id number]) [address] [place] [address] BI MAMMOGRAM SCREENING TOMOS YNTHESIS BILATERALon 06-22-2023 [...] IS VERY IMPORTANT TO YOUR HEALTH. THE [employer] GUIDELINES RECOMMEND THAT WOMEN 40 [...] of forehead Malignant neoplasm of uterus Normal [facility] Facesheeton 05-11-2022 Facesheet [id number]#1.0 0CD:127 Normal [facility] Physician Referralon 023 Physician Referral [id number] Normal [facility]17 SARS-CoV-2 (COVID-19) RNA TANIKA+probe Ql (Unsp spec) Not detected Normal NOT DETECTED [facility] Comment on above: Result Comment: This test is not yet approved or cleared by the [place] FDA. When there are no FDA-approved or cleared tests available, and other criteria are met, FDA can make tests available under an emergency access mechanism called an Emergency Use Authorization (EUA). The EUA for this test is supported by the [employer] Operator of Health and Human Service's (HHS's) declaration [...] consistent with SARS-CoV-2. Performed By: #### C VDTB #### [facility] [address] [place] [address] Dr. Fany Griggs INFLUENZA A AND B [facility] 04-05 [facility] SEE BELOW Normal [facility] Comment on above: Result Comment: Nega tive for Flu A protein angiten. Infection due to Flu A cannot be ruled out. Flu A angiten in the sample may be below the detection limit of the test. Performed By: #### I NFLUAB #### [facility] [address] [place] [address] Dr. Fany Griggs [facility] SEE BELOW Normal [facility] Comment on above: Result Comment: Nega tive for Flu B protein antigen. Infection due to Flu B cannot be ruled out. Flu B antigen in the sample may be below the detection limit of the test. Performed By: #### I NFLUAB #### [facility] [address] [place] [address] Dr. Fany Griggs INFLUENZA A AG Negative Normal NEGATIVE SEE COMMENT [facility] Comment on above: Performed By: #### I NFLUAB #### [facility] [address] [place] [address] Dr. Fany Griggs INFLUENZA B AG Negative Normal NEGATIVE SEE COMMENT [facility] Comment on above: Performed By: #### I NFLUAB #### [facility] [address] [place] [address] Dr. Fany Griggs INTERNAL CONTROLS Within Normal Limits Normal Wi thin Normal Limits [facility] Comment on above: Performed By: #### I NFLUAB #### [facility] [address] [place] [address] Dr. Fany Griggs PAP ACOG PANEL 2: 30 to 65on 02-14-2021 . . Normal [facility] Comment on above: Result Comment: Perf ormed at: WB Performed By: #### [id number] #### [facility] [address] [place] [address] Dr. Fany Griggs DIAGNOSIS: Comment Normal [facility] Comment on above: Result Comment: NEGA TIVE FOR INTRAEPITHELIAL LESION OR MALIGNANCY. Performed at: WB Performed By: #### [id number] #### [facility] [address] [place] [address] Dr. Fany Griggs HPV Aptima Negative Normal Negative [facility] Comment on above: Result Comment: This nucleic acid amplification test detects fourteen high-risk HPV types (16,18,31,33,35,39,45,51,52,56,58,59,66,68) without differentiation. Performed at: =G Performed By: #### [id number] #### [facility] [address] [place] [address] Dr. Fany Griggs Methodology: Comment [facility] Comment on above: Result Comment: This liquid based ThinPrep(R) pap test was screened with the use of an image guided system. Performed at: WB Performed By: #### [id number] #### [facility] [address] [place] [address] Dr. Fany Griggs Note: Comment Normal [facility] Comment on above: Result Comment: The Pap smear is a screening test designed to aid in the detection of premalignant and malignant conditions of the uterine cervix. It is not a diagnostic procedure and should not be used as the sole means of detecting cervical cancer. Both false-positive and false-negative reports do occur. . Performed at: WB Performed By: #### [id number] #### [facility] [address] [place] [address] Dr. Fany Griggs Performed by: Comment Normal [facility] Comment on above: Result Comment: Silvia Tafoya, Ground Wood Supervisor (ASCP) Performed at: WB Performed By: #### [id number] #### [facility] [address] [place] [address] Dr. Fany Griggs Specimen adequacy: Comment Normal [facility] Comment on above: Result Comment: Sati sfactory for evaluation. Endocervical and/or squamous metaplastic cells (endocervical component) are present. Performed at: WB Performed By: #### 4 [id number] #### [facility] [address] [address] [address] Fany Griggs Age Gdln ACOG Testing 30-65 Normal [facility] Comment on above: Performed By: #### [id number] #### [facility] [address] [place] [address] Dr. Fany Griggs Covid-19 PCR ([facility])on 12-16 SARS-CoV-2 (COVID-19) RNA TANIKA+probe Ql (Unsp spec) Not detected Normal NOT DETECTED [facility] Comment on above: Result Comment: This test is not yet approved or cleared by the [place] FDA. When there are no FDA-approved or cleared tests available, and other criteria are met, FDA can make tests available under an emergency access mechanism called an Emergency Use Authorization (EUA). The EUA for this test is supported by the [employer] Operator of Health and Human Service's (HHS's) declaration [...] SARS-CoV-2. Performed By: #### C VDTBH #### [facility] [address] [place], [place] [id number] Dr. Fany Griggs Vital Signs Date Time Vital Sign Value Performing Clinician Faci lity 08-27-2024 14:30-0400 Body weight 109.05 kg Fabiano Burke DO Work Phone: [facility] 2023 14:30-0400 Diastolic blood pressure 78 mm[Hg] Fabiano Burke DO Work Phone: [facility] 2023 14:30-0400 Systolic blood pressure 114 mm[Hg] Fabiano Burke DO Work Phone: [facility] 05-10-2022 15:41-0500 Blood Pressure Location [facility] [place] 05-10-2022 15:41-0500 Diastolic blood pressure 88 mm[Hg] [facility] [place] 05-10-2022 15:41-0500 Heart rate 80 /min [facility] [place] 05-10-2022 15:41-0500 Respiratory rate 16 /min Martin N[facility] [place] 05-10-2022 15:41-0500 Systolic blood pressure 130 mm[Hg] [facility] [place] Encounters Encounter Date Encounter Type Care Provider Facility Start: 04-07-2024 End: 04-07-2024 Bamboo flowsheet Fabiano Burke DO Work Phone: [facility] Start: 04-07-2024 End: 04-07-2024 Bamboo flowsheet Fabiano Burke DO Work Phone: [facility] Start: 2023 End: 2023 Office outpatient visit 15 minutes Fabiano Burke DO Work Phone: [facility] Comment on above: Cervical mass Start: 2023 End: 2023 ambulatory FABIANO BURKE Not Available Start: 2023 End: 2023 Bamboo flowsheet Fabiano Burke DO Work Phone: [facility] Start: 2023 End: 2023 Bamboo flowsheet Fabiano Turk DO Work Phone: [facility] Start: 11-29-2023 End: 11-30-2023 Emergency department patient visit SUMANTH ENCARNAC[facility] Start: 11-29-2023 End: 11-29-2023 Emergency department patient visit FRESNO [facility] Start: 11-25-2023 End: 11-25-2023 Emergency department patient visit GUILLERMO [facility] Start: 10-23-2023 End: 10-23-2023 ambulatory [facility] Start: 09-20-2023 End: 10-15-2023 ambulatory [facility] Start: 08-16-2023 End: 08-16-2023 ambulatory [facility] Start: 08-15-2023 End: 09-15-2023 ambulatory [facility] Start: 08-03-2023 End: 08-04-2023 ambulatory [facility] Start: 08-02-2023 End: 08-15-2023 ambulatory [facility] Start: 07-26-2023 End: 07-26-2023 ambulatory [facility] Start: 07-16-2023 ambulatory [facility] Start: 06-22-2023 End: 06-22-2023 ambulatory [...] Start: 02-09-2021 End: 02-09-[address] FABIANO TURK Facility:[facility] Start: 01-05-2021 End: 01-05-[address] GUILLERMO PATEL Facility:[facility] Procedures Date Procedure Procedure Detail Performing Clinician Start: 03-19-2023 Microscopic observat ion [Identifier] in Cervix by Cyto stain Fabiano Turk DO Work Phone: Bladder excision Martin JOSE ANGEL Harrell Comment on above: mouth section Martin Harrell Extraction of wisdom tooth [facility] Plan of Treatment Date Care Activity Detail Author Start: 03-19-2026 Screening for malign ant neoplasm of cervix [facility] Start: 03-18-2024 End: 03-18-2024 Patient encounter procedure 03/18/2024 11:20 AM EST Office Visit [facility] [address] [place] [address] Fabiano Turk, DO [address] [place], [place] [id number] [facility] Start: 03-04-2024 End: 03-04-2024 Professional / ancillary services management 03/04/2024 10:30 AM EST Ancillary Procedure [facility] [address] [place] [id number] [facility] Start: 12-16-2023 Influenza vaccination Influenz a Vaccine (#1) [facility] Start: 2023 End: 2023 Patient encounter procedure 2023 2:10 PM EDT Office Visit [facility] [address] [place] [address] Fabiano Turk, DO [address] [place], [place] [id number] Arrived [facility] Comment on above: Arrived Start: 2023 End: 12-10-2024 US for US PELVIS-TRANSVAG IF INDICATED Imaging Routine Cervical mass Expected: 2023 (Approximate), Expires: 12/10/2024 [facility] Work Phone: Comment on above: Expected: 2023 (Approximate), Expires: 12/10/2024 Start: 12-12-2015 Screening for malign ant neoplasm of cervix HPV/Cotest [facility] Immunizations Immunization Date Immunization Notes Care Provider Fa cili 09-09-2020 SARS-CoV-2 (COVID-19 ) mRNA BNT-162b2 vax Martin NILL [facility] Comment on above: Result Comment: 2022: TPVAL 08-19-2020 SARS-CoV-2 (COVID-19 ) mRNA BNT-162b2 vax Martin NILL [facility] Comment on above: Result Comment: 2022: TPVAL 01-29-2017 influenza virus vaccine, unspecified formulation Fabiano Turk Work Phone: [facility] 04-12-2013 tetanus toxoid, reduced diphtheria toxoid, and acellular pertussis vaccine, adsorbed Martin NILL [facility] Comment on above: Result Comment: give n to left deltoid NEGATED: Highlighted row has not occurred!05-10-2022 influenza virus vaccine, unspecified formulation Martin NILL [facility] Payers Date Payer Category Payer [employer] BCBS [id number] 2019 Unknown [id number] 2017 Unknown 1985 Unknown [id number] 2.16.840.1.887647.3.579. 2.593 1985 Unknown [id number] 2.16.840.1.650189.3.579. 2.593 1985 Unknown [id number] 2.16.840.1.135234.3.579. 2.593 1985 Unknown [id number] 2.16.840.1.574216.3.579. 2.727 1985 Unknown [id number] 2.16.840.1.846618.3.579. 2.727 1985 Unknown [id number] 2.16.840.1.530178.3.579. 2.1286 1985 Unknown [id number] 2.16.840.1.273805.3.579. 2.1286 1985 Unknown [id number] 2.16.840.1.957172.3.579. 2.1286 1985 Unknown [id number] 2.16.840.1.065106.3.579. 2.1286 1985 Unknown [id number] 2.16.840.1.134707.3.579. 2.1286 1985 Unknown [id number] 2.16.840.1.838120.3.579. 2.1286 1985 Unknown [id number] 2.16.840.1.287565.3.579. 2.1286 1985 Unknown [id number] 2.16.840.1.897447.3.579. 2.1286 1985 Unknown [id number] 2.16.840.1.667196.3.579. 2.1286 1985 Unknown [id number] 2.16.840.1.786400.3.579. 2.1286 1985 Unknown [id number] 2.16.840.1.069505.3.579. 2.1286 1985 Unknown [id number] 2.16.840.1.469842.3.579. 2.128 1985 Unknown [id number] 2.16.840.1.530714.3.579. 2.1286 1985 Unknown [id number] 2.16.840.1.227496.3.579. 2.128 1985 Unknown [id number] 2.16.840.1.407078.3.579. 2.128 1985 Unknown [id number] 2.16.840.1.009802.3.579. 2.1285 1985 Unknown [id number] 2.16.840.1.104506.3.579. 2.1286 1985 Unknown [id number] 2.16.840.1.599555.3.579. 2.1258 1985 Unknown [id number] 2.16.840.1.391469.3.579. 2.9 1985 Unknown [id number] 2.16.840.1.030247.3.579. 2.1259 1959 Private Health Insurance [id number] Social History Date Type Detail Facility Start: 05-10-2022 Tobacco smoking status Heavy tobacco smoker (finding) [facility] [place] Tobacco smoking status Never [facility] [place] Sex Assigned At Female [facility] Tobacco smoking status KSIS Tobacco smoking consumption unknown [facility] Start: 1985 Sex assigned at Not on file [facility] Functional Status Date Assessment Result Facility 05-10-2022 Functional Status N/A General [facility] History of Present illness Narrative 2023 Fatoumata Murcia LPN - 2023 2:10 PM EDT Note Date & Type Note Facility 2023 History of Presen t illness Narrative Reason for Appointment: Patient ID: Serjio Leos is a 37 y.o. female who presents for Follow-up Patient presents today for Acute Visit. MEDICATIONS Current Outpatient Medications Medication Instructions Adipex-P 37.5 mg, Oral, Daily before breakfast traZODone (Desyrel) 100 MG tablet Every 24 hours ALLERGIES No Known Allergies PROBLEMS Active Ambulatory Problems Diagnosis Date Noted No Active Ambulatory Problems Resolved Ambulatory Problems Diagnosis Date Noted No Resolved Ambulatory Problems No Additional Past Medical History HISTORY PAST MEDICAL HISTORY SOCIAL HISTORY No past medical history on file. Social History Tobacco Use Smoking status: Not on file Smokeless tobacco: Not on file Substance Use Topics Alcohol use: Not on file Drug use: Not on file FAMILY HISTORY No family history on file. SURGICAL HISTORY No past surgical history on file. REVIEW OF SYSTEMS Review of Systems: Review of Systems Constitutional: Negative. HENT: Negative. Eyes: Negative. Respiratory: Negative. Cardiovascular: Negative. Gastrointestinal: Negative. Genitourinary: Negative. Musculoskeletal: Negative. Skin: Negative. Neurological: Negative. All other systems reviewed and are negative. Hematological: Negative. Endocrine: Negative. Allergic/Immunologic: Negative. OBJECTIVE Objective: Physical Exam Constitutional: Appearance: Normal appearance. She is well-developed. Genitourinary: Vulva normal. Cardiovascular: Rate and Rhythm: Normal rate and regular rhythm. Pulmonary: Effort: Pulmonary effort is normal. Breath sounds: Normal breath sounds. Abdominal: General: Bowel sounds are normal. There is no distension. Palpations: Abdomen is soft. Tenderness: There is no abdominal tenderness. There is no guarding or rebound. Musculoskeletal: General: No swelling. Normal range of motion. Right lower leg: No edema. Left lower leg: No edema. Neurological: Mental Status: She is alert and oriented to person, place, and time. Skin: General: Skin is warm and dry. Psychiatric: Mood and Affect: Mood normal. Behavior: Behavior normal. Vitals and nursing note reviewed. Exam conducted with a cupola operator insulation present. Vitals: There is no height or weight on file to calculate BMI. BP: 114/78 No LMP recorded. ASSESSMENT & PLAN ICD-10-CM 1. Cervical mass N88.8 Pt presents today as a referral for cervical mass. Pelvic exam performed. Nabothian cyst noted- biopsy punch used and nabothian cyst removed. Pt tolerated well without complication. Pt given ultrasound to have obtained in 12 weeks. Annual as well Documented by Fatoumata Murcia LPN on behalf of: Fabiano Turk DO documented in this encounter [facility] Clinical Note 05-10-2022 Note Date & Type [...] and neck) discussed excision under local at [facility]; patient anxious and feels she would require general anesthesia; patient also concerned about scarring and would like to discuss this with a Plastic surgeon; recommend she be evaluated by Dr Armendariz in [place]; call with problems/questions. Follow-up No qualifying data [...] adult 04/12/2013 Given given to left deltoid [facility] Comment on above: Result Comment: Elec tronically Signed By: CORY THACKER, Martin Ratliff\Date and Time Signed: 05/10/22 16:35 EST Evaluation + Plan note Note Date & Type Note Facility Evaluation + Plan note No data available for this section [facility] [place] Evaluation note Note Date & Type Note Facility Evaluation note Diagnosis Cervical mass Other specified noninflammatory disorder of cervix documented in this encounter [facility] Discharge instructions Note Date & Type Note Facility Hospital Discharge instructions No data available for this section [facility] [place] Progress note Note Date & Type Note [...] and content) DATE CREATED AUTHOR 04/13/2021 [facility] DATE CREATED AUTHOR AUTHOR'S ORGANIZ ATION 05/18/2022 [facility] DATE CREATED AUTHOR AUTHOR'S ORGANIZ ATION 08/03/2023 [facility] DATE CREATED AUTHOR AUTHOR'S ORGANIZ ATION 12/01/2023 [facility] DATE CREATED AUTHOR AUTHOR'S ORGANIZ ATION 12/13/2023 [facility] EPIC Patient Care team informatio n (unrecognized section and content) Jewellery Designer Relationship Specialty Start Date End Date Guillermo Patel MD [address] [place] [address] PCP - General Family Medicine 03/19/23 Jewellery Designer Relationship Specialty Start Date End Date Guillermo Patel MD [address] [place] [address] PCP - General Family Medicine 03/19/23 Reason for Visit (unrecogniz ed section and content) Reason Comments Follow-up FOR RECORDS PERTAINING TO PATIENTS WHO ARE [...] BE BASED ON THE PRIMARY CLINICAL RECORDS. [employer] provides no warranty or guarantee of the accuracy or completeness of information in this document.
[2024-04-18 12:08] LABS: Age Gdln ACOG Testing Note (.); HPV Aptima Negative (Negative); IGP, Aptima HPV, rfx 16/18,45 Note (.)
== END 2024-04-07 20:44 | disposition home or self-care (01) ==
LOC: LAB 20:43
PROVIDERS: PCP Family Medicine; Visit Provider Obstetrics & Gynecology
DX: Z01.419 Encounter for gynecological examination (general) (routine) without abnormal findings (principal)
CPT/HCPCS: 88175